=== PATIENT | female | born 1965 | race Asian ===

== ENCOUNTER 2020-01-23 07:44 | Outpatient (CLI) | payer OTHER, SELFPAY ==
--- NOTE | ~2020-01-23 | DEXA_ITS ---
Bone Density Report Name: Duarte Gutierrez Age: 54 Sex: Female Ethnicity: White Date of : 1965 Indication: postmenopausal; hysterectomy; Referring Provider: Shavon Chaidez Study: Bone densitometry was performed. Exam Date: January 23, 2020 Accession number: [id number] Bone Density: Region BMD T-score Z-score Classification AP Spine (L1-L4) 1.191 1.3 2.2 Normal Femoral Neck (Left) 0.809 -0.4 0.5 Normal Total Hip (Left) 0.968 0.2 0.8 Normal Total Hip Bilateral Avg 0.979 0.3 0.8 Normal Femoral Neck (Right) 0.835 -0.1 0.8 Normal Total Hip (Right) 0.989 0.4 0.9 Normal World Health Organization criteria for BMD impression classify patients as: Normal (T-score at or above -1.0), Osteopenia (T-score between -1.0 and -2.5), or Osteoporosis (T-score at or below -2.5). 10-year Fracture Risk: FRAX not reported because: All T-scores for Spine Total, Hip Total, Femoral Neck at or above -1.0 Clinical Information Provided by Patient: Has the following medical conditions: Hysterectomy Patient maximum height was 66 Menopause Age: 50 Drinks caffeinated beverages Onset of menses at age 14 Number of children 0 Impression: The patient has normal bone mass. Discussion: BONE DENSITY IS ABOVE THE MINIMUM DESIRABLE LEVEL AT ALL SKELETAL SITES TESTED. This patient?s bone mineral density is above the minimum desirable level (T-score -1.0 or better) at all sites measured. The patient should follow a healthful lifestyle (good nutrition with adequate calcium and vitamin D, and appropriate weight-bearing exercise). Follow-Up: Consider repeating this study in 5 years or sooner if there is some new clinical indication. Reported by: SAMAN on 01/23/2020 8:23:00 AM. Reviewed, dictated and finalized at location ACatracho [facility]
--- NOTE | ~2020-01-23 | MM_ITS ---
EXAMINATION: MM screening french BI w kamla HISTORY: Screening mammogram TECHNIQUE: Craniocaudal and mediolateral oblique 3-D tomosynthesis images were obtained and synthetic 2-D images were generated. CAD analysis was submitted and interpreted. COMPARISON: 01/20/2019, 01/18/2018, 01/16/2017 bilateral digital screening mammogram examinations BREAST PARENCHYMAL COMPOSITION: There are scattered areas of fibroglandular density. FINDINGS: There is no evidence of suspicious mass, calcification, or architectural distortion to sugg est malignancy in either breast. There has been no suspicious interval change. IMPRESSION: 1. No mammographic evidence of malignancy. 2. Recommend routine screening mammography in one year. BI-RADS Category 1: Negative Reviewed, dictated and finalized at location A.
== END 2020-01-23 07:45 | disposition home or self-care (01) ==
PROVIDERS: PCP Family Medicine; Visit Provider Student in an Organized Health Care Education/Training Program
DX: Z12.31 Encounter for screening mammogram for malignant neoplasm of breast (principal); Z78.0 Asymptomatic menopausal state
CPT/HCPCS: 77063; 77067; 77080

== ENCOUNTER 2020-01-23 09:00 | Outpatient (CLI) | payer OTHER, SELFPAY ==
--- NOTE | ~2020-01-23 | XR_ITS ---
EXAMINATION: XR abdomen/kub 1V EXAM DATE: 01/23/2020 09:19 INDICATION: Kidney stone. TECHNIQUE: Frontal projection of the upper abdomen, frontal projection lower abdomen/pelvis for inter pretation. Comparison is made to prior examination from 06/03/2018. FINDINGS: There is moderate amount of colonic stool and gas. No small bowel dilation, nonobstructiv e bowel gas pattern. There are no suspicious calcifications identified. There is no organomegaly suspected. The bones are unremarkable. There is no free intraperitoneal air. The lung bases are clear. IMPRESSION: Unremarkable abdomen x-ray exam. Reviewed, dictated and finalized at location B.
== END 2020-01-23 09:01 | disposition home or self-care (01) ==
PROVIDERS: PCP Family Medicine; Visit Provider Urology
DX: N20.0 Calculus of kidney (principal)
CPT/HCPCS: 74018

== ENCOUNTER 2020-10-24 12:34 | Outpatient (CLI) | payer OTHER, SELFPAY ==
--- NOTE | ~2020-10-24 | US_ITS ---
EXAMINATION: US soft tissue chest DATE: 10/24/2020 13:21 INDICATION: Congenital malformation of respiratory tract. Palpable lump at the distal sternum. TECHNIQUE: Multiple grayscale and Doppler ultrasound images of the anterior chest wall region of conc lacy along the inferior sternum were obtained. COMPARISON: None FINDINGS: At the region of concern is a 9 x 6 x 5 mm nearly anechoic lesion with lobular margins and posterior acoustic enhancement. The lesion is situated at the junction of the dermal and subdermal fat. No inte rnal flow on color Doppler. On one of the cine images there appears to be a subtle hypoechoic tract e xtending to the skin surface. IMPRESSION: 1. 9 x 6 x 5 mm cystic subcutaneous lesion with suggestion of subtle sinus tract extending to the ski n surface which would be most consistent with an epidermoid sebaceous cyst. Reviewed, dictated and finalized at location A. IMPRESSION: 1. 9 x 6 x 5 mm cystic subcutaneous lesion with suggestion of subtle sinus trac t extending to the skin surface which would be most consistent with an epidermo id sebaceous cyst.
== END 2020-10-24 12:35 | disposition home or self-care (01) ==
PROVIDERS: PCP Physician Assistant; Visit Provider Student in an Organized Health Care Education/Training Program
DX: Q34.9 Congenital malformation of respiratory system, unspecified (principal); M79.89 Other specified soft tissue disorders
CPT/HCPCS: 76604

== ENCOUNTER 2021-01-24 14:01 | Outpatient (CLI) | payer OTHER, SELFPAY ==
--- NOTE | ~2021-01-24 | MM_ITS ---
EXAMINATION: MM screening french BI w kamla HISTORY: Screening mammogram TECHNIQUE: Craniocaudal and mediolateral oblique 3-D tomosynthesis images were obtained and synthetic 2-D images were generated. CAD analysis was submitted and interpreted. COMPARISON: 01/23/2020, 01/20/2019, 01/18/2018, 01/16/2017, 01/16/2016 bilateral digital screening mammogr am examinations BREAST PARENCHYMAL COMPOSITION: There are scattered areas of fibroglandular density. FINDINGS: There is no evidence of suspicious mass, calcification, or architectural distortion to sugg est malignancy in either breast. There has been no suspicious interval change. IMPRESSION: 1. No mammographic evidence of malignancy. 2. Recommend routine screening mammography in one year. BI-RADS Category 1: Negative Reviewed, dictated and finalized at location A.
== END 2021-01-24 14:02 | disposition home or self-care (01) ==
LOC: ANHIMG 14:04
PROVIDERS: PCP Family Medicine; Visit Provider Student in an Organized Health Care Education/Training Program
DX: Z12.31 Encounter for screening mammogram for malignant neoplasm of breast (principal)
CPT/HCPCS: 77063; 77067

== ENCOUNTER → 2021-03-21 16:26 | Outpatient (CLI) | payer OTHER, SELFPAY ==
--- NOTE | ~2021-03-21 | XR_ITS ---
XR pelvis 1-2V DATE: 03/21/2021 16:46 INDICATION: Sacroiliac joint pain TECHNIQUE: AP pelvis COMPARISON: None FINDINGS: No pelvic fracture or bone destruction. The pubic symphysis and sacroiliac joints are intac t. No erosive change or ankylosis at the sacroiliac joints. There is multilevel degenerative disc disease of the lumbar spine. Bilateral moderate hip osteoarthritis. IMPRESSION: Multilevel degenerative disc disease of the lumbar spine Moderate bilateral hip osteoarthritis Unremarkable sacroiliac joints Reviewed, dictated and finalized at location A.
--- NOTE | ~2021-03-21 | XR_ITS ---
XR lumbar spine 2-3V DATE: 03/21/2021 16:46 INDICATION: Low back pain TECHNIQUE: AP, lateral, coned lateral lumbosacral views COMPARISON: 01/04/2015 lumbar spine FINDINGS: There is minimal levoscoliosis of the thoracolumbar spine. There is mild grade 1 anterolist hesis at L4-5 due to degenerative change at the apophyseal joints. There is moderate multilevel degenerative disc disease of the lumbar spine. No fracture or bone destruction is evident. The included lower thoracic and lumbar pedicles are intac t. The sacroiliac joints are normal. IMPRESSION: Minimal levoscoliosis of the thoracic and lumbar spine Moderate degenerative disc disease Grade 1 anterolisthesis at L4-5 due to degenerative change at the apophyseal joints Reviewed, dictated and finalized at location A. IMPRESSION: Minimal levoscoliosis of the thoracic and lumbar spine Moderate degenerative disc disease Grade 1 anterolisthesis at L4-5 due to degenerative change at the apophyseal basil ints
== END ==
PROVIDERS: PCP Internal Medicine; Visit Provider Internal Medicine
DX: M53.3 Sacrococcygeal disorders, not elsewhere classified (principal); M54.5 Low back pain; M51.36 Other intervertebral disc degeneration, lumbar region; M16.0 Bilateral primary osteoarthritis of hip; M41.84 Other forms of scoliosis, thoracic region; M41.86 Other forms of scoliosis, lumbar region; M43.16 Spondylolisthesis, lumbar region
CPT/HCPCS: 72100; 72170

== ENCOUNTER → 2021-04-01 16:02 | Outpatient (CLI) | payer OTHER, SELFPAY ==
--- NOTE | ~2021-04-01 | MR_ITS ---
EXAMINATION: MR lumbar spine wo con DATE: 04/01/2021 16:54 INDICATION: Low back pain. TECHNIQUE: Magnetic resonance imaging (MRI) of the lumbar spine was performed without intravenous con trast. Sequences included sagittal T2-weighted FSE, sagittal T2-weighted FS FSE, sagittal T1-weighted FSE, and axial T2-weighted FSE. COMPARISON: Lumbar spine radiographs 03/21/2021 FINDINGS: There is 6 degrees levocurvature of thoracolumbar spine. There is 4 mm anterolisthesis of L 4 on L5. Vertebral body heights are normal. There is mildly decreased disc height at L4-L5 and L5-S1. The distal spinal cord signal intensity is normal. The conus medullaris is at L1. The following disc levels are specifically discussed: L1-L2: The disc does not extend beyond the endplate margin. There is mild bilateral facet joint osteo arthritis. There is no neural foraminal stenosis. There is no central canal stenosis. L2-L3: The disc does not extend beyond the endplate margin. There is mild bilateral facet joint osteo arthritis. There is no neural foraminal stenosis. There is no central canal stenosis. L3-L4: The disc is bulging and has an annular fissure. There is severe bilateral facet joint osteoart hritis. There is mild bilateral neural foraminal stenosis. There is mild central canal stenosis. L4-L5: The disc does not extend beyond the endplate margin. There is severe bilateral facet joint ost eoarthritis. There is mild bilateral neural foraminal stenosis. There is mild central canal stenosis. L5-S1: There is a central extrusion. There is moderate bilateral facet joint osteoarthritis. There is mild left neural foraminal stenosis. There is mild central canal stenosis. IMPRESSION: 1. Mild lumbar spondylosis. Reviewed, dictated and finalized at location A. IMPRESSION: 1. Mild lumbar spondylosis.
== END ==
PROVIDERS: PCP Internal Medicine; Visit Provider Internal Medicine
DX: M54.5 Low back pain (principal); M47.816 Spondylosis without myelopathy or radiculopathy, lumbar region
CPT/HCPCS: 72148

== ENCOUNTER 2022-01-19 11:18 | Outpatient (CLI) | payer OTHER, SELFPAY ==
--- NOTE | ~2022-01-19 | XR_ITS ---
EXAM: XR abdomen/kub 1V DATE: 01/19/2022 11:34 HISTORY: CALCIUM KIDNEY STONE. LEFT SIDE . COMPARISON: CT abdomen and pelvis 09/30/2018. FINDINGS: Clear lung bases. Normal bowel gas pattern. No organomegaly. Punctate left mid and inferio r pole calcifications. Degenerative changes in the lumbar spine and bilateral hips. IMPRESSION: Left nephrolithiasis. Reviewed, dictated and finalized at location K. IMPRESSION: Left nephrolithiasis.
== END 2022-01-19 11:19 | disposition home or self-care (01) ==
PROVIDERS: PCP Internal Medicine; Visit Provider Urology
DX: N20.0 Calculus of kidney (principal)
CPT/HCPCS: 74018

== ENCOUNTER 2022-02-04 08:03 | Outpatient (CLI) | payer OTHER, SELFPAY ==
--- NOTE | ~2022-02-04 | DEXA_ITS ---
Bone Density Report Name: BREANA LEE Age: 56 Sex: Female Ethnicity: Date of : 1965 Indication: postmenopausal; screening for osteoporosis; hysterectomy; Referring Provider: DIMITRY BAZZI Study: Bone densitometry was performed. Exam Date: February 04, 2022 Accession number: [id number] Bone Density: Region BMD T-score Z-score Classification AP Spine(L1, L2, L3) 1.205 1.7 2.7 Normal Femoral Neck (Left) 0.818 -0.3 0.7 Normal Total Hip (Left) 0.989 0.4 1.0 Normal Femoral Neck (Right) 0.886 0.3 1.3 Normal Total Hip (Right) 1.018 0.6 1.3 Normal Total Hip Mean 1.003 0.5 1.2 Normal World Health Organization criteria for BMD impression classify patients as: Normal (T-score at or above -1.0), Osteopenia (T-score between -1.0 and -2.5), or Osteoporosis (T-score at or below -2.5). 10-year Fracture Risk: FRAX not reported because: All T-scores for Spine Total, Hip Total, Femoral Neck at or above -1.0 Previous Exams: Region Exam Age BMD T-score BMD Change BMD Change Date g/cm2 vs Baseline vs Previous AP Spine (L1-L3) 02/04/2022 56 1.205 1.7 0.060 (5.3%)* 0.060 (5.3%)* 01/23/2020 54 1.145 1.2 Total Hip(Left) 02/04/2022 56 0.989 0.4 0.021 (2.2%) 0.021 (2.2%) 01/23/2020 54 0.968 0.2 Total Hip(Right) 02/04/2022 56 1.018 0.6 0.029 (2.9%)* 0.029 (2.9%)* 01/23/2020 54 0.989 0.4 *Denotes significance at 95% confidence level, LSC for AP Spine = 0.022 g/cm2, LSC for Total Hip = 0.027 g/cm2 Clinical Information Provided by Patient: Has used the following medications: Vitamin D Has the following medical conditions: Hysterectomy Patient maximum height was 66.5 Menopause Age: 50 Does not regularly consume dairy products Drinks caffeinated beverages Onset of menses at age 14 Number of children 0 Impression: The patient has normal bone mass. No significant bone loss was observed. Discussion: BONE DENSITY IS ABOVE THE MINIMUM DESIRABLE LEVEL AT ALL SKELETAL SITES TESTED. This patient?s bone mineral density is above the minimum desirable level (T-score -1.0 or better) at all sites measured. The patient should follow a healthful lifestyle (good nutrition with adequate calcium and vitamin D, and appropriate weight-bearing exercise). Follow-Up: Consider repeating this study in 5 years or sooner if there is some new clinical indication. Reported by: YINKA on 02/04/2022 8:38:00 AM.
--- NOTE | ~2022-02-04 | MM_ITS ---
EXAMINATION: MM screening french BI w kamla HISTORY: Screening TECHNIQUE: Craniocaudal and mediolateral oblique 3-D tomosynthesis images were obtained and synthetic 2-D images were generated. CAD analysis was submitted and interpreted. COMPARISON: Comparison to multiple prior studies sequentially, with oldest reviewed study dated 01/15. BREAST PARENCHYMAL COMPOSITION: There are scattered areas of fibroglandular density. FINDINGS: There is no evidence of suspicious mass, calcification, or architectural distortion to sugg est malignancy in either breast. There has been no suspicious interval change. IMPRESSION: 1. No mammographic evidence of malignancy. 2. Recommend routine screening mammography in one year. BI-RADS Category 1: Negative Reviewed, dictated and finalized at location A.
== END 2022-02-04 08:04 | disposition home or self-care (01) ==
LOC: ANHIMG 08:04
PROVIDERS: PCP Internal Medicine; Visit Provider Student in an Organized Health Care Education/Training Program
DX: Z12.31 Encounter for screening mammogram for malignant neoplasm of breast (principal); Z78.0 Asymptomatic menopausal state
CPT/HCPCS: 77063; 77067; 77080

== ENCOUNTER 2023-03-12 14:33 | Outpatient (CLI) | payer OTHER, SELFPAY ==
--- NOTE | ~2023-03-12 | MM_ITS ---
EXAMINATION: MM screening french BI w kamla HISTORY: Screening TECHNIQUE: Craniocaudal and mediolateral oblique 3-D tomosynthesis images were obtained and synthetic 2-D images were generated. CAD analysis was submitted and interpreted. COMPARISON: Comparison to multiple prior studies sequentially, with oldest reviewed study dated 01/16. BREAST PARENCHYMAL COMPOSITION: Breast composed of scattered areas of fibroglandular density FINDINGS: There are developing asymmetries scattered throughout the left breast some of which have a nodular appearance. The right breast is stable without evidence for malignancy. IMPRESSION: 1. Developing nodular asymmetries of the left breast. 2. Additional mammographic views and possible breast ultrasound are recommended. BI-RADS Category 0: Incomplete: Needs additional imaging evaluation. Reviewed, dictated and finalized at location A. IMPRESSION: 1. Developing nodular asymmetries of the left breast. 2. Additional mammographic views and possible breast ultrasound are recommended . BI-RADS Category 0: Incomplete: Needs additional imaging evaluation.
== END 2023-03-12 14:34 | disposition home or self-care (01) ==
LOC: ANHIMG 14:36
PROVIDERS: PCP Internal Medicine; Visit Provider Registered Nurse
DX: Z12.31 Encounter for screening mammogram for malignant neoplasm of breast (principal); N64.89 Other specified disorders of breast; R92.8 Other abnormal and inconclusive findings on diagnostic imaging of breast
CPT/HCPCS: 77063; 77067

== ENCOUNTER 2023-04-08 12:39 | Outpatient (CLI) | payer OTHER, SELFPAY ==
--- NOTE | ~2023-04-08 | MMUS_ITS ---
EXAMINATION: MM diagnostic french LT w kamla, US breast LT limited HISTORY: Developing nodular asymmetries of left breast reported on 03/12/2023 screening mammogram TECHNIQUE: Additional 3-D tomosynthesis images of the left breast were performed and synthetic 2-D im ages were generated. CAD analysis was submitted and interpreted. High resolution upper outer and lowe r-outer quadrants and subareolar left breast ultrasound was performed. COMPARISON: 03/12/2023, 02/04/2022, 01/24/2021 bilateral screening mammogram examinations FINDINGS: MAMMOGRAPHIC FINDINGS: No suspicious mass or architectural distortion, malignant calcification, skin thickening or retractio n or significant new or developing density is detected. ULTRASOUND: No suspicious mass or shadowing, cyst or other significant sonographic abnormality is detected in the subareolar area where the upper outer or lower outer quadrants. IMPRESSION: 1. No mammographic or sonographic evidence of malignancy 2. Routine annual mammographic screening is recommended BI-RADS Category 1: Negative Reviewed, dictated and finalized at location A. IMPRESSION: 1. No mammographic or sonographic evidence of malignancy 2. Routine annual mammographic screening is recommended BI-RADS Category 1: Negative
== END 2023-04-08 12:40 | disposition home or self-care (01) ==
PROVIDERS: PCP Internal Medicine; Visit Provider Registered Nurse
DX: R92.8 Other abnormal and inconclusive findings on diagnostic imaging of breast (principal)
CPT/HCPCS: 76642; 77061; 77065; G0279

== ENCOUNTER 2023-05-03 09:06 | Day surgery (SDC) | payer OTHER, SELFPAY ==
[2023-05-03 10:01] VITALS: BP 119/93; PULSE 73; RESP 16; TEMP 37.1; O2SAT 97
[2023-05-03] MEDS: LACTATED RINGERS 1,000 ML 150 ML IV CONT (10:08)
--- NOTE | 2023-05-03 10:13 | WPDANESEPPF ---
Anes - Initial Pre Proc Eval Procedure: Operation Date: 05/03/23 11:00 Proposed Procedures p Colonoscopy - Aden Haas MD Date/Time: 05/03/23 10:13 Surgeon: Aden Haas MD Pre Op Diagnosis: Family History of Colon Cancer Patient Data Age: 57 Gender: F Height: 1.68 m Weight: 76.5 kg Last Vital Signs Temp 37.1 C 05/03/23 10:01 Pulse 73 05/03/23 10:01 Resp 16 05/03/23 10:01 BP 119/93 H 05/03/23 10:01 Pulse Ox 97 05/03/23 10:01 O2 Del Method Room Air 05/03/23 10:01 Allergies Allergy/AdvReac Type Severity Reaction Status Date / Time neomycin Allergy Intermediate REDNESS,BLI Verified 05/03/23 09:59 STERS adhesive Allergy Mild Rash Verified 05/03/23 09:59 bacitracin Allergy Unknown Unknown Verified 05/03/23 09:59 polymyxin B Allergy Unknown Unknown Verified 05/03/23 09:59 Home Medications Medication Instructions Recorded Confirmed Type cholecalciferol (vitamin D3) 125 5,000 unit PO .3XWK 10/03/20 05/03/23 History mcg (5,000 unit) tablet lactobacillus combination no.8 3 3,000 mmu cells PO DAILY 10/03/20 05/03/23 History billion cell capsule (Adult Probiotic) levothyroxine 75 mcg tablet 75 mcg PO DAILY #90 tabs 03/24/21 05/03/23 Rx (Levo-T) hydrochlorothiazide 25 mg tablet 25 mg PO DAILY 04/16/21 05/03/23 History estradiol 2 mg tablet 2 mg PO DAILY #90 tabs 01/01/23 05/03/23 Rx amlodipine 10 mg tablet 10 mg PO DAILY 04/13/23 05/03/23 History Patient hx anesthesia problems: none Family hx anesthesia problems: none Results Review: All pre-operative results and documents have been reviewed as part of the pre-operative evaluation. [facility] Past Medical History Medical History Elevated liver function tests Family history of colon cancer in father History of nephrolithotomy with removal of calculi Hypertension Hypothyroidism Menopausal syndrome Normal colonoscopy Prediabetes Surgical History Surgical History H/O LEEP History of appendectomy History of hysterectomy [place] teeth removed Family History Family History Mother Diabetes mellitus Hypertension Patient's mother is , Onset Age: 64 Father Patient's father is , Onset Age: 68 Carcinoma of colon Family history of primary malignant neoplasm of liver Sibling Family history of malignant neoplasm of thyroid Social History Social History (Updated 01/01/23 @ 07:45 by Verena Burgos MA) Smoking status: Never smoker Second hand tobacco smoke exposure: No Alcohol intake: never Substance use: never Substance use type: does not use Lack of Transportation: No Lack of Food: Never True Current Housing: I Have Housing Concerned About Future Housing: No Difficulty Paying Gas/Electric Bills: No Difficulty Paying for Meds: No Currently Unemployed: No Education: Master's Degree or Higher Living arrangements: with family Occupation/Education: occupation Gender identity (if verbalized by the patient): Female Sexual Orientation (if Verbalized by the Patient): Straight or Heterosexual Spiritual care concerns: No Anes - Eval Final PreProcedure Day of Procedure 05/03/23 10:13 Patient weight: overweight Heart: regular rate and rhythm Lungs: clear to auscultation Airway: Mallampati scale class II Neurological: alert and oriented Last oral intake: >/= 8 hours ASA classification: II Emergent: no Anesthetic plan: proceed Anesthesia type and monitoring: general GIVS and standard monitoring Results Review: All pre-operative results and documents have been reviewed as part of the pre-operative evaluation. Informed Consent: The patient's anesthetic plan and its attendant risks and benefits were discussed with the patient/family/POA. Questions were
--- NOTE | 2023-05-03 10:58 | PM.HPGS ---
History of Present Illness History of Present Illness Consent: Risks, benefits, and alternatives have been discussed and questions answered. Patient agrees to proceed with procedure. Chief complaint: Family History of Colon Cancer Narrative: Duarte Gutierrez is a 57 year old female here for colonoscopy, ?her father had colon cancer and she has been getting her colonoscopies every 5 years (already had 3 and last one 2018) Review of Systems Constitutional: Constitutional: Denies headache(s) and Denies weakness Eyes: Eyes: Denies blurry vision ENT: Reports Normal hearing present, Denies headache(s) and Denies neck pain Cardiovascular: Cardiovascular: Denies chest pain and Denies dyspnea Respiratory: Respiratory: Denies dyspnea Gastrointestinal: Gastrointestinal: Reports no additional gastrointestinal complaints Genitourinary: Genitourinary: Denies dysuria Musculoskeletal: Musculoskeletal: Denies neck pain Integumentary/Breasts: Skin/Breast: Denies dry skin Neurologic: Reports Normal hearing present, Denies headache(s) and Denies weakness Psychiatric: Psychiatric: Denies anxiety Endocrine: Endocrine: Denies change in body appearance Hematologic/Lymphatic: Hematologic/Lymphatic: Denies easy bleeding Allergic/Immunologic: Allergic/Immunologic: Denies urticaria PMFSH Past Medical History Medical History Elevated liver function tests Family history of colon cancer in father History of nephrolithotomy with removal of calculi Hypertension Hypothyroidism Menopausal syndrome Normal colonoscopy Prediabetes Surgical History Surgical History H/O LEEP History of appendectomy History of hysterectomy [place] teeth removed Family History Family History Mother Diabetes mellitus Hypertension Patient's mother is , Onset Age: 64 Father Patient's father is , Onset Age: 68 Carcinoma of colon Family history of primary malignant neoplasm of liver Sibling Family history of malignant neoplasm of thyroid Social History Social History (Updated 01/01/23 @ 07:45 by Verena Burgos MA) Smoking status: Never smoker Second hand tobacco smoke exposure: No Alcohol intake: never Substance use: never Substance use type: does not use Lack of Transportation: No Lack of Food: Never True Current Housing: I Have Housing Concerned About Future Housing: No Difficulty Paying Gas/Electric Bills: No Difficulty Paying for Meds: No Currently Unemployed: No Education: Master's Degree or Higher Living arrangements: with family Occupation/Education: occupation Gender identity (if verbalized by the patient): Female Sexual Orientation (if Verbalized by the Patient): Straight or Heterosexual Spiritual care concerns: No Meds Home Medications and Allergies Home Medications Medication Instructions Recorded Confirmed Type cholecalciferol (vitamin D3) 125 5,000 unit PO .3XWK 10/03/20 05/03/23 History mcg (5,000 unit) tablet lactobacillus combination no.8 3 3,000 mmu cells PO DAILY 10/03/20 05/03/23 History billion cell capsule (Adult Probiotic) levothyroxine 75 mcg tablet 75 mcg PO DAILY #90 tabs 03/24/21 05/03/23 Rx (Levo-T) hydrochlorothiazide 25 mg tablet 25 mg PO DAILY 04/16/21 05/03/23 History estradiol 2 mg tablet 2 mg PO DAILY #90 tabs 01/01/23 05/03/23 Rx amlodipine 10 mg tablet 10 mg PO DAILY 04/13/23 05/03/23 History Allergies Allergy/AdvReac Type Severity Reaction Status Date / Time neomycin Allergy Intermediate REDNESS,BLI Verified 05/03/23 09:59 STERS adhesive Allergy Mild Rash Verified 05/03/23 09:59 bacitracin Allergy Unknown Unknown Verified 05/03/23 09:59 polymyxin B Allergy Unknown Unknown Verified 05/03/23 09:59 Vital Signs Vital Signs - 24 hr 05/03/23 1
[2023-05-03 11:21] VITALS: BP 94/69; PULSE 66; RESP 18; O2SAT 99
[2023-05-03 11:31] VITALS: BP 107/78; PULSE 63; RESP 14; O2SAT 100
[2023-05-03 11:41] VITALS: BP 118/74; PULSE 65; RESP 15; O2SAT 100
--- NOTE | 2023-05-03 11:58 | WPDANESPN ---
Anes - Prog Note Post-Op Date/Time: 05/03/23 11:58 Cardiovascular status: normal Respiratory status: normal Airway patency: baseline Mental status: baseline Post-Op hydration status: normal Vital Signs: Last Vital Signs Temp 37.1 C 05/03/23 10:01 Pulse 65 05/03/23 11:41 Resp 15 05/03/23 11:41 BP 118/74 05/03/23 11:41 Pulse Ox 100 05/03/23 11:41 O2 Del Method Room Air 05/03/23 11:41 Pain Score (VAS): 0 I/O: Intake & Output 05/02/23 05/03/23 05/03/23 23:59 07:59 15:59 Intake Total 850 Balance 850 Patient Feedback: Patient satisfied with anesthetic care.
== END 2023-05-03 11:54 | disposition home or self-care (01) ==
PROVIDERS: PCP Internal Medicine; Visit Provider Internal Medicine Gastroenterology
PROC: 0DJD8ZZ Inspection of Lower Intestinal Tract, Via Natural or Artificial Opening Endoscopic (ICD-10-PCS; CPT 45378; principal; 2023-05-03 11:00)
DX: Z80.0 Family history of malignant neoplasm of digestive organs (principal); K57.30 Diverticulosis of large intestine without perforation or abscess without bleeding
CPT/HCPCS: 45378

== ENCOUNTER 2024-03-25 08:13 | Outpatient (CLI) | payer OTHER, SELFPAY ==
--- NOTE | ~2024-03-25 | MM_ITS ---
EXAMINATION: MM screening [facility] BI w kamla HISTORY: Screening TECHNIQUE: Craniocaudal and mediolateral oblique 3-D tomosynthesis images were obtained and synthetic 2-D images were generated. CAD analysis was submitted and interpreted. COMPARISON: Comparison to multiple prior studies sequentially, with oldest reviewed study dated 01/20. BREAST PARENCHYMAL COMPOSITION: Not dense: There are scattered areas of fibroglandular density. FINDINGS: There is no evidence of suspicious mass, calcification, or architectural distortion to sugg est malignancy in either breast. There has been no suspicious interval change. IMPRESSION: 1. No mammographic evidence of malignancy. 2. Recommend routine screening mammography in one year. BI-RADS Category 1: Negative Reviewed, dictated and finalized at location B.
== END 2024-03-25 08:14 | disposition home or self-care (01) ==
PROVIDERS: PCP Internal Medicine; Visit Provider Nurse Practitioner Family
DX: Z12.31 Encounter for screening mammogram for malignant neoplasm of breast (principal)
CPT/HCPCS: 77063; 77067

== ENCOUNTER 2024-06-07 14:08 | Outpatient (CLI) | payer OTHER, SELFPAY ==
--- NOTE | ~2024-06-07 | DEXA_ITS ---
Bone Density Report Name: BREANA LEE Age: 58 Sex: Female Ethnicity: Date of : 1965 Indication: postmenopausal; screening for osteoporosis; hysterectomy; Referring Provider: AMBER JONES Study: Bone densitometry was performed. Exam Date: June 07, 2024 Accession number: [id number] Bone Density: Region BMD T-score Z-score Classification AP Spine(L1-L4) 1.286 2.2 3.4 Normal Femoral Neck (Left) 0.837 -0.1 1.0 Normal Total Hip (Left) 1.012 0.6 1.3 Normal Femoral Neck (Right) 0.872 0.2 1.3 Normal Total Hip (Right) 1.013 0.6 1.3 Normal Total Hip Mean 1.012 0.6 1.3 Normal World Health Organization criteria for BMD impression classify patients as: Normal (T-score at or above -1.0), Osteopenia (T-score between -1.0 and -2.5), or Osteoporosis (T-score at or below -2.5). 10-year Fracture Risk: FRAX not reported because: All T-scores for Spine Total, Hip Total, Femoral Neck at or above -1.0 Previous Exams: Region Exam Age BMD T-score BMD Change BMD Change Date g/cm2 vs Baseline vs Previous AP Spine (L1-L4) 06/07/2024 58 1.286 2.2 0.095 (8.0%)* 0.095 (8.0%)* 01/23/2020 54 1.191 1.3 Total Hip(Left) 06/07/2024 58 1.012 0.6 0.044 (4.5%)* 0.023 (2.3%) 02/04/2022 56 0.989 0.4 0.021 (2.2%) 0.021 (2.2%) 01/23/2020 54 0.968 0.2 Total Hip(Right) 06/07/2024 58 1.013 0.6 0.024 (2.4%) -0.005 (-0.4%) 02/04/2022 56 1.018 0.6 0.029 (2.9%)* 0.029 (2.9%)* 01/23/2020 54 0.989 0.4 *Denotes significance at 95% confidence level, LSC for AP Spine = 0.022 g/cm2, LSC for Total Hip = 0.027 g/cm2 Clinical Information Provided by Patient: Has used the following medications: Vitamin D Has the following medical conditions: Hysterectomy Patient maximum height was 66 Menopause Age: 50 Does not regularly consume dairy products Drinks caffeinated beverages Onset of menses at age 14 Number of children 0 Impression: The patient has normal bone mass. No significant bone loss was observed. Discussion: BONE DENSITY IS ABOVE THE MINIMUM DESIRABLE LEVEL AT ALL SKELETAL SITES TESTED. This patient?s bone mineral density is above the minimum desirable level (T-score -1.0 or better) at all sites measured. The patient should follow a healthful lifestyle (good nutrition with adequate calcium and vitamin D, and appropriate weight-bearing exercise). Follow-Up: Consider repeating this study in 5 years or sooner if there is some new clinical indication. Reported by: YINKA on 06/07/2024 2:33:00 PM. Reviewed, dictated and finalized at location [facility]
== END 2024-06-07 14:09 | disposition home or self-care (01) ==
LOC: ANHIMG 14:09
PROVIDERS: PCP Internal Medicine; Visit Provider Nurse Practitioner Family
DX: N95.1 Menopausal and female climacteric states (principal); Z13.820 Encounter for screening for osteoporosis
CPT/HCPCS: 77080

== ENCOUNTER 2024-06-18 07:30 | Outpatient (CLI) | payer OTHER, SELFPAY ==
--- NOTE | ~2024-06-18 | MR_ITS ---
MRI of the left shoulder Technique: Axial proton-density fat-sat images, coronal proton density fat-sat and T2 fat-sat images, and sagittal T1-weighted and T2 fat-sat images were acquired. Clinical History: Pain Findings: There is minimal degenerative change at the AC joint. Coracoclavicular, coracoacromial, and coracohumeral ligaments are intact. Supraspinatus and infraspinatus tendons are intact, without partial or full-thickness tear. Subscapul florian tendon intact. Tendon of the long head of the biceps is intact. No labral tear seen. Inferior glenohumeral ligament is probably mildly thickened with increased signal. No degenerative ch deion or effusion of the glenohumeral joint. No fluid distention of the subacromial/subdeltoid bursa. No muscle atrophy or edema. Impression: Possible adhesive capsulitis. No rotator cuff or labral tear seen. Reviewed, dictated and finalized at [facility]. HOLOGICAL STRESS EVALUATOR Impression: Possible adhesive capsulitis. No rotator cuff or labral tear seen.
== END 2024-06-18 07:31 | disposition home or self-care (01) ==
LOC: ANHIMG 07:31
PROVIDERS: PCP Internal Medicine
DX: M25.512 Pain in left shoulder (principal); M75.42 Impingement syndrome of left shoulder
CPT/HCPCS: 73221

== ENCOUNTER 2025-02-22 07:36 | Emergency (ER) | payer OTHER, SELFPAY ==
--- NOTE | ~2025-02-22 | CT_ITS ---
EXAMINATION: CT abdomen pelvis wo con DATE: 02/22/2025 09:56 INDICATION: Left flank pain. History of kidney stones. TECHNIQUE: Computed tomography (CT) of the abdomen and pelvis was performed without intravenous contr ast. The dose-length product was 437.54 mGy-cm. Automated exposure control and iterative reconstruction technique were employed. COMPARISON: CT dated 10/01/2019 FINDINGS: There is a 4 mm left UVJ stone with mild-moderate left hydronephrosis. There are nonobstruc ting bilateral renal stones. Dependent atelectasis of the lung bases. Heart size normal. The liver, spleen, pancreas, adrenal glan ds are unremarkable. No free air or free fluid. No significant vascular abnormality. No lymphadenopat hy. No abnormal pelvic masses or fluid collections. Mild lumbar spondylosis. There is degenerative gr marycruz 1 spondylolisthesis at L4-5. IMPRESSION: 1. Left UVJ stone measuring 4 mm with mild-moderate hydronephrosis. 2: Nonobstructing bilateral nephrolithiasis. Reviewed, dictated and finalized at location A.
--- OUTSIDE RECORDS SUMMARY | 2025-02-22 07:38 | XMS_ITS | Referral Summary ---
Author Organization [facility] Physician Office Building [address] [place] [address] Care Team Providers Care [employer] Financials Consultant Name Role Phone Isabelle Rojas MD Primary Care Provider [phone] Allergies Active Allergy Reactions Criticality Noted Date Comments Latex Unknown 05/29/2024 Hlilomia-Tmqqkoguxw-Qglkgxvlq Rash,Unknown Medium 08/2018 Wasp Venom Swelling Medium 08/02/1997 Medications Synthroid 75 mcg tablet 05/22/2021 Active lisinopriL (PRINIVIL,ZESTRI L) 10 mg tablet Take 1 tablet (10 mg total) by mouth daily Active cholecalciferol (VITAMIN D-3) 5,000 unit capsule 11/11/2020 Active amLODIPine (NORVASC) 10 mg tablet Take 1 tablet (10 mg total) by mouth daily 11/11/2020 Active L. acidophilus/Bifi d. animalis 31 billion cell capsule 11/11/2020 Active hydroCHLOROthiaz yosef (HYDRODIURIL) 25 mg tablet Take 1 tablet (25 mg total) by mouth daily 10/03/2020 Active estradioL (ESTRACE) 2 mg tablet Take 1 tablet (2 mg total) by mouth daily 03/19/2020 Active Active Problems No known active problems Social History Tobacco Use Types Packs/Day Years Used Date Smoking Tobacco: Never Tobacco Cessation:Counseling Given: Not Answered Comments Unknown Sex and Gender Information Value Date Recorded Sex Assigned at Not on file Legal Sex Female 2:25 AM SONG LYRICIST Gender Identity Not on file Sexual Orientation Not on file Last Filed Vital Signs Vital Sign Reading Time Taken Comments Blood Pressure 116/84 05/29/2024 2:38 PM CDT Pulse 78 05/29/2024 2:38 PM CDT Temperature 37.1 C (98.8 F) 06/23/2021 8:08 AM SONG LYRICIST Respiratory Rate 16 06/23/2021 8:08 AM SONG LYRICIST Oxygen Saturation 99% 06/23/2021 8:08 AM SONG LYRICIST Inhaled Oxygen Concentration - - Weight 72.5 kg (159 lb 14.4 oz) 05/29/2024 2:38 PM CDT Height 167 cm (5' 5.75) 05/29/2024 2:38 PM CDT Body Mass Index 26.01 05/29/2024 2:38 PM CDT Plan of Treatment Not on file Insurance [facility] HMO/PPO Address: [address] [address] [place] [address] [facility] [id number] [facility] CHO[facility] HMO/PPO Address: [address] [address] [place] [address] [facility] [id number] Care Teams [employer] Consultant Relationship Specialty Start Date End Date Isabelle Rojas MD PCP - General Internal Medicine 04/03/21
--- OUTSIDE RECORDS SUMMARY | 2025-02-22 07:39 | XMS_ITS | Clinical Summary ---
Author Organization [facility] Address [address], [address] [address] Phone Care Team Providers Care Box Lining Machine Feeder Name Role Phone Melchor Manzanares DO Unavailable [phone] Barbi Gutierrez MD Primary Care Provi shree Allergies Active Allergy Reactions Criticality Noted Date Comments Cclcinflth-Bxzpdysg-Bvmdibpei Rash 2018 Medications levothyroxine (SYNTHROID) 75 MCG Tablet Take 75 mcg by mouth daily. Reported on 11/19/2016 Active Estrogens Conj Synthetic B (ENJUVIA) 0.625 MG Tablet Take by mouth. Reported on 11/19/2016 Active lisinopril (PRINIVIL, ZESTRIL) 10 MG Tablet Take 10 mg by mouth daily. Active estradiol (ESTRACE) 1 MG Tablet Take 1.5 mg by mouth daily. Hazardous: Medication requires special safe handling and disposal. Active Nutritional Supplements (DHEA PO) Take 5 mg by mouth. Active Progesterone Micronized 200 MG Capsule Take 200 mg by mouth daily. Hazardous: Medication requires special safe handling and disposal. Active Cholecalciferol (VITAMIN D-3 PO) Take 5,000 Units by mouth. Active polyethylene glycol (MIRALAX) Powder Use 255g with 64 oz of clear liquid as directed by office for colonoscopy prep. 255 g 7 Active Additional Information Patient not taking.Reported on 05/31/2018 hydroCHLOROthiaz yosef 25 MG Tablet Take 25 mg by mouth daily. Active amLODIPine (NORVASC) 10 MG Tablet Take 10 mg by mouth daily. Active Dietary Management Product (VSL#3) Pack Take 1 Packet by mouth daily. Active Probiotic Product (ALOE 41206 & PROBIOTICS) Capsule Take by mouth. Activ e LINZESS 290 MCG Capsule TAKE 1 CAPSULE EVERY MORNING BEFORE BREAKFAST 30 Cap 6 8 Active Additional Information Patient not taking.Reported on 11/28/2018 Active Problems Problem Noted Date Diagnosed Date Chronic idiopathic constipation 11/19/2016 Family History Medical History Relation Name Comments Colon Cancer Father Liver Cancer Father Diabetes Mother Hypertension Mother Relation Name Status Comments Father Mother Social History Tobacco Use Types Packs/Day Years Used Date Smoking Tobacco: Never Smokeless Tobacco: Never Alcohol Use Standard Drinks/Week Comments No 0 (1 standard drink = 0.6 oz pur e alcohol) Sexually Active Control Partners Comments Never None Male Comments No Sex and Gender Information Value Date Recorded Sex Assigned at Not on file Legal Sex Female 7:18 PM CDT Gender Identity Not on file Sexual Orientation Not on file 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 Not on file Not on file No t on file Last Filed Vital Signs Vital Sign Reading Time Taken Comments Blood Pressure 120/70 11/28/2018 3:12 PM CDT Pulse 66 11/28/2018 3:12 PM CDT Temperature 36.1 C (96.9 F) 05/31/2018 3:18 PM CDT Respiratory Rate 16 11/19/2016 2:51 PM CDT Oxygen Saturation 98% 11/28/2018 3:12 PM CDT Inhaled Oxygen Concentration - - Weight 71.2 kg (157 lb) 11/28/2018 3:12 PM CDT Height 167.6 cm (5' 6) 11/28/2018 3:12 PM CDT Body Mass Index 25.34 11/28/2018 3:12 PM CDT Plan of Treatment Health Maintenance Due Date Last Done Comments Hepatitis B Immunization (1 of 3 - 19+ 3-dose series) 09/30/1986 Cologuard 09/30/2012 Immunochemical Fecal Occult Blood 09/30/2012 Pneumococcal Immunization (50+ years) (1 of 1 - PCV) 09/30/2017 Zoster Immunization (1 of 2) 09/30/2017 Colonoscopy 05/05/2023 05/05/2018 Colorectal Cancer Screening 05/05/2023 SARS-COV-2 Immunization ( season) 2024 07/09/2021, 10/04/2020, 09/06/2020 Influenza Immunization (#1) 2025 0912/2016, 05/04/2016, 05/22/2015, Additional history exists Respiratory Syncytial Virus (RSV) Immunization (Adult) (1 - 1-dose 75+ series) 09/30/2042 DTaP/Tdap/Td Immunization Discontinued 01/05/2012, 08/2002 TdaP Immunization Completed 01/05/2012 Hepatitis C Virus (HCV) Screening Completed 09/11/2016 Human Papillomavirus (HPV) Immunization Aged Out No longer eligible based on patient's age to complete this topic Meningococcal Immunization (ACWY) Aged Out No longer eligible based on patient's age to complete this topic Rotavirus Immunization Aged Out No lo nger eligible based on patient's age to complete this topic Procedures Procedure Name Priority Date/Time Associated Diagnosis Comments COLONOSCOPY Routine 05/05/2018 HEPATITIS C RNA QUANT PCR RAL LOAD Routine 09/11/2016 Elevated liver enzymes from Last 3 Months or Most Recently Relevant to Health Maintenance Results * COLONOSCOPY (05/05/2018) us Melchor Manzanares DO PROCEDURE/MINOR SURGICAL ORDERA BLES Final Result * HEPATITIS C RNA QUANT PCR VIRAL LOAD (09/11/2016) Blood specimen (specimen) us Venus Willis SOFTWARE SYSTEMS ENGINEER, [facility] IMMUNOLOGY ORDERABLES Fi nal Result from Last 3 Months or Most Recently Relevant to Health Maintenance Insurance [employer] [facility] OA Care Teams Box Lining Machine Feeder Relationship Specialty Start Date End Date Barbi Gutierrez MD [address] [place] [address] PCP - General Family Medicine 05/09/18 Melchor Manzanares DO Gastroenterology 04/09/16
--- OUTSIDE RECORDS SUMMARY | 2025-02-22 07:39 | XMS_ITS | Encounter Summary ---
Author Organization [facility] Address [address] [address] Care Team Providers Care Sap Fico Architect Name Role Phone Servando Lozano MD Primary Care Provider [phone] Encounter Details Date Type Department Care Team (Late st Contact Info) Description 11/22/2020 Lab Requisition [facility] [address] [place] [id number] Deshawn Gil MD [address] [place] [address] Social History Tobacco Use Types Packs/Day Years Used Date Smoking Tobacco: Never Assessed Comments Unknown Sex and Gender Information Value Date Recorded Sex Assigned at Not on file Legal Sex Female 6:28 PM SHOP ASSISTANT Gender Identity Not on file Sexual Orientation Not on file documented as of this encounter Plan of Treatment Not on file documented as of this encounter Procedures Procedure Name Priority Date/Time Associated Diagnosis Comments DERMATOPATHOLOGY Routine 11/20/2020 3:33 AM CDT documented in this encounter Results * DERMATOPATHOLOGY (11/20/2020 3:33 AM CDT) Case Report Dermatopathology Report Case: [id number] Authorizing Provider: Deshawn Gil MD Collected: 11/20/2020 03:33 AM Ordering Location: [facility] Received: 11/22/2020 02:19 PM Pathologist: Eden Quispe MD Specimen: Skin, superior aspect breast cleavage on midline sternum 12:10 PM CDT DERMATOPATHOLOGY LABORATORY Final Diagnosis Specimen A. SKIN, superior aspect breast cleavage on midline sternum: RUPTURED EPIDERMOID CYST (L72.0) 12:10 PM CDT DERMATOPATHOLOGY LABORATORY at 1210 CDT Clinical History R/O EIC, other. 12:10 PM CDT DERMATOPATHOLOGY LABORATORY Gross Description Specimen A: Received is one formalin filled container labeled with the patient's name and designated superior aspect breast cleavage on midline sternum. The specimen consists of an excision submitted in 4 pieces measuring [id number], bisected, [id number], [id number], & 9y0i3fm. Jar 0. 12:10 PM CDT DERMATOPATHOLOGY LABORATORY Microscopic Description Specimen A. SKIN, superior aspect breast cleavage on midline sternum: Within the dermis, there is an infiltrate composed of lymphocytes and histiocytes, including multinucleated type giant cells. Some histiocytes contain flakes of material consistent with keratin. 12:10 PM CDT DERMATOPATHOLOGY LABORATORY Disclaimer An external and internal positive and negative controls are appropriate for the histochemical, immunohistochemical and immunofluorescence stain(s) in this case (if any), except where stated explicitly. The performance characteristics of the stain(s) cited in this report were developed and its performance characteristic determined by the Dermatopathology Laboratory at [facility], directed by Dr. Austin Dhillon. These tests need not be, and therefore are not, approved by the [place] Food and Drug Administration. The tests are used for clinical purposes. Billing Codes Specimen Charges Stain Charges 41592 1 12:10 PM CDT DERMATOPATHOLOGY LABORATORY Embedded Images 12:10 PM CDT DERMATOPATHOLOGY LABORATORY Pathology/Cytolo gy TISSUE SPECIMEN FROM SKIN / Unknown 11/20/2020 3:33 AM CDT 11/22/2020 2:19 PM CDT us Deshawn Gil MD LAB - PATHOLOGY/CYTOLOGY ORD ERABLES Final Result DERMATOPATHOLOGY LABORATORY [facility] - Department of Dermatology [address], [address] [phone] documented in this encounter Visit Diagnoses Not on filedocumented in this encounter Care Teams Sap Fico Architect Relationship Specialty Start Date End Date Servando Lozano MD [address] [place] [address] PCP - General 08/16/12 documented as of this encounter
--- OUTSIDE RECORDS SUMMARY | 2025-02-22 07:39 | XMS_ITS | Clinical Summary ---
Author Organization [facility] Physician Office Building [address] [place] [address] Care Team Providers Care Servicing Manager Name Role Phone Isabelle Rojas MD Primary Care Provider [phone] Allergies Active Allergy Reactions Criticality Noted Date Comments Latex Unknown 05/29/2024 Zrdamzag-Jzkwglufkf-Nvnaxhiqb Rash,Unknown Medium 08/2018 Wasp Venom Swelling Medium [...] Active Active Problems No known active problems Surgical History Surgery Date Site/Laterality Comments BUNIONECTOMY KIDNEY STONE SURGERY HYSTERECTOMY Medical History Medical History Date Comments Hypertension Tuberculosis Thyroid disease Peripheral neuropathy Kidney stone Family History Medical History Relation Name Comments Cancer Other Diabetes Other Hypertension Other Relation Name Status Comments Other Social History Tobacco Use Types Packs/Day Years Used Date Smoking Tobacco: Never Tobacco Cessation:Counseling Given: Not Answered Comments Unknown Sex and Gender Information Value Date Recorded Sex Assigned at Not on file Legal Sex Female 2:25 AM DISTRICT BRANCH MANAGER Gender Identity Not on file Sexual Orientation Not on file Obstetrics History Last Filed Vital Signs Vital Sign Reading Time Taken Comments Blood Pressure 116/84 05/29/2024 2:38 PM CDT Pulse 78 05/29/2024 2:38 PM CDT Temperature 37.1 C (98.8 F) 06/23/2021 8:08 AM DISTRICT BRANCH MANAGER Respiratory Rate 16 06/23/2021 8:08 AM DISTRICT BRANCH MANAGER Oxygen Saturation 99% 06/23/2021 8:08 AM DISTRICT BRANCH MANAGER Inhaled Oxygen Concentration - - Weight 72.5 kg (159 lb 14.4 oz) 05/29/2024 2:38 PM CDT Height 167 cm (5' 5.75) 05/29/2024 2:38 PM CDT Body Mass Index 26.01 05/29/2024 2:38 PM CDT Plan of Treatment Health Maintenance Due Date Last Done Comments Breast Cancer Screening-Mammogram 1965 Colon Cancer Screening-Colonoscopy 1965 Depression Screening 1965 Hepatitis C Screening 1965 Hepatitis B Screening 09/30/1985 Regular Well Visit/Exam 18-64 09/30/1985 DTaP/Tdap/Td Vaccine (2 - Td or Tdap) 01/04/2022 01/05/2012, 11/30/2002 Covid-19 Vaccine ( season) 2024 10/04/2020, 09/06/2020 Influenza Vaccine (#1) 2025 , 05/03/2020, 05/02/2020, Additional history exists Zoster Vaccine Completed 06/07/2020, 04/05/2020 Pneumococcal vaccine <65 Aged Out No longer eligible based on patient's age to complete this topic Insurance [facility] CHOICE PLUS [facility] H[facility]/PPO Address: [address] [address] [place] [address] [facility] CHOICE PLUS [facility] HMO/PPO Address: [place] [address] Care Teams Servicing Manager Relationship Specialty Start Date End Date Isabelle Rojas MD PCP - General Internal Medicine 04/03/21
--- OUTSIDE RECORDS SUMMARY | 2025-02-22 07:39 | XMS_ITS | Clinical Summary ---
Author Organization [facility] Address [address] [place] [address] Care Team Providers Care Certified Health Education Specialist Name Role Phone Servando Lozano MD Primary Care Provider [phone] Source Comments [facility],non-owned Affiliates and Associated Physician Practices is amultiple site organization consisting of ambulatory clinics and hospital sitesin [place], [place], [place] and [place]. This disclosure is being madepursuant to the Care Everywhere program and may not contain all information available regarding this patient. Last updated 18.[facility] Allergies No known active allergies Immunizations Immunization Administration Dates Next Due INFLUENZA VACCINE, QUADR. (F LUZONE; FLULAVAL; FLUARIX; AFLURIA QUADRIVALENT; 6MO+), 0.5 ML (IIV4) 04/11/2019 Social History Tobacco Use Types Packs/Day Years Used Date Smoking Tobacco: Never Assessed Comments Unknown Sex and Gender Information Value Date Recorded Sex Assigned at Not on file Legal Sex Female 6:28 PM HABILITATION ASSISTANT Gender Identity Not on file Sexual Orientation Not on file Plan of Treatment Health Maintenance Due Date Last Done Comments COLOGUARD (AGES 45-75) - COL ON CA SCREENING 1965 COLON MONITORING 1967 COLONOSCOPY - COLON CA SCREENING 1967 CT COLONOGRAPHY - COLON CA SCREENING 1965 Colorectal Cancer Screening 1965 FIT - COLON CA SCREENING 1967 FLEX SIG - COLON CA SCREENING 1965 LIPID TESTING 1965 MAMMOGRAM 1965 HIV SCREENING 09/30/1982 HEPATITIS C SCREENING 09/26/1985 DTAP/TDAP/TD VACCINES (1 - Tdap) 09/30/1986 HEPATITIS B VACCINE (1 of 3 - 19+ 3-dose series) 09/30/1986 PNEUMOCOCCAL VACCINE 50+ (1 of 1 - PCV) 09/30/2017 ZOSTER VACCINE (1 of 2) 09/30/2017 COVID-19 VACCINE (1 - 2023-2 5 season) 2024 DEPRESSION SCREENING 08/02/2024 INFLUENZA VACCINE (#1) 2025 04/11/2019 HIB VACCINE Aged Out No longer eligi ble based on patient's age to complete this topic HPV VACCINE Aged Out No longer eligi ble based on patient's age to complete this topic MENINGOCOCCAL (Group B) VACC INE SHARED DECISION-MAKING Aged Out No longer eligibl e based on patient's age to complete this topic MENINGOCOCCAL GROUPS A/C/Y/W VACCINE Aged Out No longer eligible b ased on patient's age to complete this topic Insurance [facility] [employer] Care Teams Certified Health Education Specialist Relationship Specialty Start Date End Date Servando Lozano MD [address] [place] [address] PCP - General 08/16/12
[2025-02-22 08:32] VITALS: BP 97/76; PULSE 70; RESP 20; TEMP 36.5; O2SAT 99
[2025-02-22 08:52] VITALS: BP 117/81; PULSE 66; RESP 19; TEMP 36.4; O2SAT 99
[2025-02-22 09:06] LABS: Hematocrit 40.7 % (37.0-47.0); Hemoglobin 14.0 g/dL (12.0-15.0); Immature Granulocyte Percent A 0.2 % (0-0.5); Lymphocytes Absolute Auto 1.08 K/mm3 (0.9-3.2); Mean Corpuscular HGB Conc 34.4 g/dl (32-36); Mean Corpuscular Hemoglobin 29.4 pg (26-34); Mean Corpuscular Volume 85.3 fl (80-100); Nucleated Red Blood Cells Absolute Auto 0.000 K/mm3 (0.0-0.012); Nucleated Red Blood Cells Perc 0.0 % (0.0-0.2); Platelet Count Result 350 k/mm3 (150-375); Red Blood Count 4.77 M/mm3 (4.2-5.4); White Blood Count 13.0 K/mm3 (4.5-10.0)
--- OUTSIDE RECORDS SUMMARY | 2025-02-22 09:21 | XMS_ITS | Clinical Summary ---
Author Organization [facility] Address [address] [place] [address] Care Team Providers Care Registered Account Administrator Name Role Phone Servando Lozano MD Primary Care Provider [phone] Source Comments [facility],non-owned Affiliates and Associated Physician Practices is amultiple site organization consisting of ambulatory clinics and hospital sitesin [place], [place], [place] and [place]. This disclosure is being madepursuant to the Care Everywhere program and may not contain all information available regarding this patient. Last updated 18.[facility] Allergies No known active allergies Immunizations Immunization Administration Dates Next Due INFLUENZA VACCINE, QUADR. (F LUZONE; FLULAVAL; FLUARIX; AFLURIA QUADRIVALENT; 6MO+), 0.5 ML (IIV4) 04/11/2019 Social History Tobacco Use Types Packs/Day Years Used Date Smoking Tobacco: Never Assessed Comments Unknown Sex and Gender Information Value Date Recorded Sex Assigned at Not on file Legal Sex Female 6:28 PM TEXTILE SCREEN MAKER Gender Identity Not on file Sexual Orientation [...] patient's age to complete this topic Insurance [facility] [employer] Care Teams Registered Account Administrator Relationship Specialty Start Date End Date Servando Lozano MD [address] [place] [address] PCP - General 08/16/12
--- OUTSIDE RECORDS SUMMARY | 2025-02-22 09:21 | XMS_ITS | Clinical Summary ---
Author Organization [facility] Physician Office Building [address] [place] [address] Care Team Providers Care Ordnance Artificer Helper Name Role Phone Isabelle Rojas MD Primary Care Provider [phone] Allergies Active Allergy Reactions Criticality Noted Date Comments Latex Unknown 05/29/2024 Yvuoyfrx-Gteutqsgqp-Scbcrzilb Rash,Unknown Medium 08/2018 Wasp Venom Swelling Medium [...] on file Legal Sex Female 2:25 AM COLLECTION SYSTEMS TECHNICIAN Gender Identity Not on file Sexual Orientation Not on file Obstetrics History Last Filed Vital Signs Vital Sign Reading Time Taken Comments Blood Pressure 116/84 05/29/2024 2:38 PM CDT Pulse 78 05/29/2024 2:38 PM CDT Temperature 37.1 C (98.8 F) 06/23/2021 8:08 AM COLLECTION SYSTEMS TECHNICIAN Respiratory Rate 16 06/23/2021 8:08 AM COLLECTION SYSTEMS TECHNICIAN Oxygen Saturation 99% 06/23/2021 8:08 AM COLLECTION SYSTEMS TECHNICIAN Inhaled Oxygen Concentration - - Weight 72.5 [...] patient's age to complete this topic Insurance [facility] CHOICE PLUS [address] [place] [address] [facility] CHOICE PLUS Care Teams Ordnance Artificer Helper Relationship Specialty Start Date End Date Isabelle Rojas MD PCP - General Internal Medicine 04/03/21
--- OUTSIDE RECORDS SUMMARY | 2025-02-22 09:21 | XMS_ITS | Referral Summary ---
Author Organization [facility] Physician Office Building [address] [place] [id number] Care Team Providers Care Side Panel Padder Name Role Phone Isabelle Rojas MD Primary Care Provider [phone] Allergies Active Allergy Reactions Criticality Noted Date Comments Latex Unknown 05/29/2024 Ffiimtha-Faewvasbgm-Rgxprybpq Rash,Unknown Medium 08/2018 Wasp Venom Swelling Medium [...] on file Legal Sex Female 2:25 AM OPERATIONS DISPATCHER Gender Identity Not on file Sexual Orientation Not on file Last Filed Vital Signs Vital Sign Reading Time Taken Comments Blood Pressure 116/84 05/29/2024 2:38 PM CDT Pulse 78 05/29/2024 2:38 PM CDT Temperature 37.1 C (98.8 F) 06/23/2021 8:08 AM OPERATIONS DISPATCHER Respiratory Rate 16 06/23/2021 8:08 AM OPERATIONS DISPATCHER Oxygen Saturation 99% 06/23/2021 8:08 AM OPERATIONS DISPATCHER Inhaled Oxygen Concentration - - Weight 72.5 kg (159 lb 14.4 oz) 05/29/2024 2:38 PM CDT Height 167 cm (5' 5.75) 05/29/2024 2:38 PM CDT Body Mass Index 26.01 05/29/2024 2:38 PM CDT Plan of Treatment Not on file Insurance [facility] CHOICE [facility]US [facility] HMO/PPO Address: [address] [address] [place] [address] [facility] [id number] [facility] CHOICE [facility]US [facility] HMO/PPO Address: [facility] [address] [place] [address] [facility] [id number] Care Teams Side Panel Padder Relationship Specialty Start Date End Date Isabelle Rojas MD PCP - General Internal Medicine 04/03/21
--- OUTSIDE RECORDS SUMMARY | 2025-02-22 09:21 | XMS_ITS | Encounter Summary ---
Author Organization [facility] Address [address] [facility] [place] [address] Care Team Providers Care Pump Assembler Name Role Phone Servando Lozano MD Primary Care Provider [phone] Encounter Details Date Type Department Care Team (Late st Contact Info) Description 11/22/2020 Lab Requisition [facility] DermPath Lab [address] [place] [id number] Deshawn Gil MD [address] [place] [address] Social History Tobacco Use Types Packs/Day Years Used Date Smoking Tobacco: Never Assessed Comments Unknown Sex and Gender Information Value Date Recorded Sex Assigned at Not on file Legal Sex Female 6:28 PM SLIP MAKER Gender Identity Not on file Sexual Orientation Not on file documented as of this encounter Plan of Treatment Not on file documented as of this encounter Procedures Procedure Name Priority Date/Time Associated Diagnosis Comments DERMATOPATHOLOGY Routine 11/20/2020 3:33 AM CDT documented in this encounter Results * DERMATOPATHOLOGY (11/20/2020 3:33 AM CDT) Case Report Dermatopathology Report Case: [id number] Authorizing Provider: Deshawn Gil MD Collected: 11/20/2020 03:33 AM Ordering Location: [facility] Received: 11/22/2020 02:19 PM Pathologist: [...] an excision submitted in 4 pieces measuring 5m9m3sq, bisected, 2t3d2yp, 7y2h4vy, & 1m5o0mg. Jar 0. 12:10 PM CDT DERMATOPATHOLOGY LABORATORY [...] characteristic determined by the Dermatopathology Laboratory at [facility], directed by Dr. Austin Dhillon. These tests need not be, and therefore are not, approved by the [place] Food and Drug Administration. The tests are used for clinical purposes. Billing Codes Specimen Charges Stain Charges 52463 1 12:10 PM CDT DERMATOPATHOLOGY LABORATORY Embedded Images 12:10 PM CDT DERMATOPATHOLOGY LABORATORY Pathology/Cytolo gy TISSUE SPECIMEN FROM SKIN / Unknown 11/20/2020 3:33 AM CDT 11/22/2020 2:19 PM CDT us Deshawn Gil MD LAB - PATHOLOGY/CYTOLOGY ORD ERABLES Final Result DERMATOPATHOLOGY LABORATORY [facility] - Department of Dermatology [address], [address] [phone] documented in this encounter Visit Diagnoses Not on filedocumented in this encounter Care Teams Pump Assembler Relationship Specialty Start Date End Date Servando Lozano MD [address] [place] [address] PCP - General 08/16/12 documented as of this encounter
--- OUTSIDE RECORDS SUMMARY | 2025-02-22 09:21 | XMS_ITS | Clinical Summary ---
Author Organization [facility] Address [address], [address] [address] Phone Care Team Providers Care Ciaio Counter Molder Name Role Phone Melchor Manzanares DO Unavailable [phone] Barbi Gutierrez MD Primary Care Provi shree Allergies Active Allergy Reactions Criticality Noted Date Comments Wvglglbjkh-Czbdllrh-Yutfqqliw Rash 2018 Medications levothyroxine (SYNTHROID) 75 MCG [...] by mouth daily. Active Probiotic Product (ALOE 34240 & PROBIOTICS) Capsule Take by mouth. 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
[2025-02-22 09:29] LABS: Alanine Aminotransferase 24 U/L (6-35); Albumin Level 4.3 g/dL (3.5-5.1); Alkaline Phosphatase 81 U/L (38-126); Anion Gap 8 mmol/L (4-12); Aspartate Amino Transferase 37 U/L (14-36); Bilirubin,Total 0.6 mg/dL (0.2-1.3); Blood Urea Nitrogen 15 mg/dL (7-17); Calcium 9.1 mg/dL (8.4-10.2); Carbon Dioxide 25 mmol/L (22-30); Chloride 100 mmol/L (98-107); Estimated CRCL calculation 53 ml/min; Estimated Glomerular Filt Rate 60; Glucose 127 mg/dL (65-110); Lipase 31 U/L (23-300); Potassium 3.2 mmol/L (3.4-5.0); Sodium 133 mmol/L (137-145); Total Protein 7.6 g/dL (6.3-8.2)
[2025-02-22 09:33] LABS: Add Urine Microscopic? YES; Appearance Urine Clear (Clear); Budding Yeast Urine Present /hpf; Glucose Urine UA Negative (Negative); Leukocyte Esterase Ur Negative LEU/UL (Negative); Need Manual Microscopic Reviewed; Nitrate Urine Negative (Negative); Non Pathogenic Casts 0-2; Specific Grav Ur 1.031 (1.001-1.035)
[2025-02-22 09:34] VITALS: BP 120/80; PULSE 69; RESP 15; O2SAT 98
--- NOTE | 2025-02-22 09:47 | ED.ABDPAIN ---
HPI - Abdominal Pain General Chief Complaint: Abdominal Pain Stated Complaint: sharp left sided abdominal pain Time Seen by Provider: 02/22/25 09:09 Source: patient Mode of arrival: ambulatory Limitations: no limitations History of Present Illness HPI narrative: This is a 59 year old female that presents to the ER for left flank pain ongoing since last night. Reports associated urinary frequency. Reports history of kidney stones. Reports nausea and vomiting. Denies fever, hematuria. Related Data Home Medications ?Medication ?Instructions ?Recorded ?Confirmed ?Last Taken ?Type cholecalciferol (vitamin D3) 125 5,000 unit PO .3XWK 10/03/20 01/17/24 Unknown History mcg (5,000 unit) tablet lactobacillus combination no.8 3 3,000 mmu cells PO DAILY 10/03/20 01/17/24 Unknown History billion cell capsule (Adult Probiotic) Allergies Allergy/AdvReac Type Severity Reaction Status Date / Time neomycin Allergy Intermediate REDNESS,BLI Verified 02/22/25 08:51 STERS adhesive Allergy Mild Rash Verified 02/22/25 08:51 bacitracin Allergy Unknown Unknown Verified 02/22/25 08:51 polymyxin B Allergy Unknown Unknown Verified 02/22/25 08:51 Review of Systems Review of Systems: All systems reviewed & are unremarkable except as noted in HPI and below PMFSH Past Medical History Medical History Elevated liver function tests Family history of colon cancer in father History of nephrolithotomy with removal of calculi Hypertension Hypothyroidism Menopausal syndrome Normal colonoscopy Prediabetes Surgical History Surgical History H/O LEEP History of appendectomy History of hysterectomy [place] teeth removed Family History Family History Mother Diabetes mellitus Hypertension Patient's mother is , Onset Age: 64 Father Patient's father is , Onset Age: 68 Carcinoma of colon Family history of primary malignant neoplasm of liver Sibling Family history of malignant neoplasm of thyroid Social History Social History Smoking status: Never smoker Second hand tobacco smoke exposure: No Alcohol intake: never Substance use: never Substance use type: does not use Lack of Transportation: No Lack of Food: Never True Current Housing: I Have Housing Concerned About Future Housing: No Difficulty Paying Gas/Electric Bills: No Difficulty Paying for Meds: No Currently Unemployed: No Education: Master's Degree or Higher Living arrangements: with family Occupation/Education: occupation Gender identity (if verbalized by the patient): Female Sexual Orientation (if Verbalized by the Patient): Straight or Heterosexual Spiritual care concerns: No Exam Narrative: GENERAL: Well-appearing, well-nourished, and in no acute distress. HEAD: Normocephalic, atraumatic. EYES: EOMI. CHEST: Clear to auscultation. No respiratory distress. No wheezes rales or rhonchi HEART: Regular rate and rhythm. No murmur heard. Normal peripheral pulses. ABDOMEN: Soft, nontender, nondistended, normal active bowel sounds. EXTREMITIES: Normal range of motion. No edema. SKIN: Warm, dry, no rash. NEURO: No focal deficits. Alert and oriented x3. PSYCH: Normal mood and affect Course Course Emergency Course: Patient updated on her workup and agrees with plan of care Vital Signs Vital signs: Vital Signs Temperature 97.7 F 02/22/25 08:32 Pulse Rate 70 02/22/25 08:32 Respiratory Rate 20 02/22/25 08:32 Blood Pressure 97/76 L 02/22/25 08:32 Pulse Oximetry 99 02/22/25 08:32 Oxygen Delivery Room Air 02/22/25 08:32 Temperature 97.5 F L 02/22/25 08:52 Pulse Rate 65 02/22/25 10:09 Respiratory Rate 14 02/22/25 10:09 Blood Pressure 110/77 02/22/25 10:09 Pulse Oximetry 97 02/22/25 10:09 Oxygen Delivery Room Air 02/22/25 08:52 MDM - Abdominal Pain MDM Narrative Medical decision making narrative: Patient presents emergency department for left flank pain. She is afebrile and nontoxic appearing. Vitals are stable. CBC with mild leukocytosis to 13. Metabolic panel with mild hypokalemia, this was replaced. Magnesium is normal. Urine without evidence of infection, does show red blood cells. CT abdomen pelvis shows a 4 mm left UVJ stone. Patient updated on her workup and agrees with plan of care. Pain is under control currently. Will be started on Flomax, given pain medication as needed. She is to follow up with her urologist. She was given warnings to return to the ER Differential Diagnosis Differential diagnosis: Likely calculus of kidney and diverticulitis Lab Data Attestation: I reviewed the patient's lab results. 02/22/25 09:00 02/22/25 09:00 Labs: Lab Results 02/22/25 02/22/25 Range/Units 09:00 09:03 WBC 13.0 H (4.5-10.0) K/mm3 RBC 4.77 (4.2-5.4) M/mm3 Hgb 14.0 (12.0-15.0) g/dL Hct 40.7 (37.0-47.0) % MCV 85.3 (80-100) fl MCH 29.4 (26-34) pg MCHC 34.4 (32-36) g/dl RDW 12.0 (11.5-14.5) % Plt Count 350 (150-375) k/mm3 MPV 9.2 (7.4-10.4) fl Immature Gran % (Auto) 0.2 (0-0.5) % Neut % (Auto) 88.7 H (45.5-73.1) % Lymph % (Auto) 8.3 L (18.3-44.2) % [place] % (Auto) 2.4 L (2.6-8.5) % Eos % (Auto) 0.0 (0-4.4) % Baso % (Auto) 0.4 (0.2-1.2) % Lymph # (Auto) 1.08 (0.9-3.2) K/mm3 [place] # (Auto) 0.3 (0.1-0.6) K/mm3 Eos # (Auto) 0.0 (0-0.3) K/mm3 Baso # (Auto) 0.1 (0.0-0.1) K/mm3 Abs Immat Gran (auto) 0.03 (0.00-0.031) K/mm3 Absolute Neuts (auto) 11.5 H (1.3-6.7) K/mm3 Absolute Nucleated RBC 0.000 (0.0-0.012) K/mm3 Nucleated RBC % 0.0 (0.0-0.2) % Sodium 133 L (137-145) mmol/L Potassium 3.2 L (3.4-5.0) mmol/L Chloride 100 (98-107) mmol/L Carbon Dioxide 25 (22-30) mmol/L Anion Gap 8 (4-12) mmol/L BUN 15 (7-17) mg/dL Creatinine 0.96 (0.7-1.0) mg/dL Estim Creat Clear Calc 53 ml/min Estimated GFR 60 (59 - ) Glucose 127 H (65-110) mg/dL Calcium 9.1 (8.4-10.2) mg/dL Magnesium 1.9 (1.6-2.3) mg/dL Total Bilirubin 0.6 (0.2-1.3) mg/dL AST 37 H (14-36) U/L ALT 24 (6-35) U/L Alkaline Phosphatase 81 (38-126) U/L Total Protein 7.6 (6.3-8.2) g/dL Albumin 4.3 (3.5-5.1) g/dL Lipase 31 (23-300) U/L Urine Color Yellow (Yellow) Urine Appearance Clear (Clear) Urine pH 5.5 (5.0-9.0) Ur Specific [place] 1.031 (1.001-1.035) Urine Protein Trace (Negative) mg/dL Urine Glucose (UA) Negative (Negative) mg/dL Urine Ketones 3+ H (Negative) mg/dL Ur Blood (Man) Negative (Negative) Urine Nitrate Negative (Negative) Urine Bilirubin Negative (Negative) Urine Urobilinogen 1.0 (<2.0) mg/dL Add Ur Microanalysis Reviewed Leukocyte Esterase Rfl Negative (Negative) KEESHA/UL Urine RBC 6-10 H (0-2) /hpf Urine WBC 0-5 (0-3) /hpf Ur Squamous Epith Cells Moderate (Few) /hpf Urine Bacteria Rare /hpf Urine Casts 0-2 Urine Mucus Present /lpf Urine Yeast (Budding) Present H (None) /hpf Imaging Data Radiologist's impression: ITS Impressions Abdomen/Pelvis CT 02/22/25 09:59 IMPRESSION: 1. Left UVJ stone measuring 4 mm with mild-moderate hydronephrosis. 2: Nonobstructing bilateral nephrolithiasis. Critical Care Time Critical Care Time Critical Care Time: No Discharge Plan Discharge Clinical Impression: Ureterolithiasis, Hypokalemia Patient Disposition: Home Condition: Stable Instructions: Kidney Stones (ED), Hypokalemia (ED), How to Strain Your Urine (ED) Additional Instructions: Return to the ER if you experience fever, abdominal pain with nausea and vomiting, you are unable to keep down liquids or solids, or any other symptoms that are concerning to you Remain well hydrated. Take tamsulosin daily. Pain medication as needed. Strain your urine Follow up with your urologist Patient Language: Uzbek Prescriptions: New hydrocodone-acetaminophen 5-325 mg tablet 1 tablet PO Q6H PRN (Reason: pain) Qty: 20 0RF tamsulosin 0.4 mg capsule 0.4 mg PO DAILY 7 Days Qty: 7 0RF No Action cholecalciferol (vitamin D3) 125 mcg (5,000 unit) tablet 5,000 unit PO .3XWK Rx Instructions: WEDNESDAY, WEDNESDAY, WEDNESDAY. (1 TAB). Adult Probiotic 3 billion cell capsule 3,000 mmu cells PO DAILY Rx Instructions: administer with a meal amlodipine 10 mg tablet 10 mg PO DAILY Qty: 90 0RF levothyroxine [Synthroid] 75 mcg tablet 75 mcg PO DAILY Qty: 90 0RF hydrochlorothiazide 25 mg tablet 25 mg PO DAILY Qty: 90 0RF estradiol 2 mg tablet 2 mg PO DAILY Qty: 90 0RF Follow-up/Referrals: Juanita Renner PA-C [Primary Care Provider] - Mukund Petit MD [Physician] -
[2025-02-22] MEDS: SODIUM CHLORIDE 0.9% IV 1,000 ML 999 ML IV CONT (10:06)
[2025-02-22] MEDS: ONDANSETRON INJ 4 MG/2 ML VIAL IV PUSH (10:08)
[2025-02-22 10:09] VITALS: BP 110/77; PULSE 65; RESP 14; O2SAT 97
[2025-02-22] MEDS: MORPHINE SULFATE (*CRX) 4 MG/ML INJ IV PUSH (10:09)
[2025-02-22 10:49] LABS: Magnesium 1.9 mg/dL (1.6-2.3)
[2025-02-22] MEDS: KETOROLAC 15 MG/ML VIAL (*BKC) IV PUSH (11:11)
[2025-02-22] MEDS: POTASSIUM CHLORIDE 20 MEQ ER TABLET 40 MEQ PO (11:11)
[2025-02-22 11:12] VITALS: BP 116/76; PULSE 69; RESP 16; O2SAT 99
== END 2025-02-22 11:28 | disposition home or self-care (01) ==
PROVIDERS: Emergency Medicine; Emergency Provider Physician Assistant; PCP Student in an Organized Health Care Education/Training Program
DX: N20.1 Calculus of ureter (principal); E87.6 Hypokalemia; I10 Essential (primary) hypertension; E03.9 Hypothyroidism, unspecified
CPT/HCPCS: 36415; 74176; 80053; 81001; 83690; 83735; 85025; 96361; 96374; 96375; 99284; A9270; J1885; J2270; J2405; J7030

== ENCOUNTER 2025-04-30 15:10 | Outpatient (CLI) | payer OTHER, SELFPAY ==
--- NOTE | ~2025-04-30 | MM_ITS ---
EXAMINATION: MM screening french BI w kamla HISTORY: Screening TECHNIQUE: Craniocaudal and mediolateral oblique 3-D tomosynthesis images were obtained and synthetic 2-D images were generated. CAD analysis was submitted and interpreted. COMPARISON: Comparison to multiple prior studies sequentially, with oldest reviewed study dated 01/23/2020. BREAST PARENCHYMAL COMPOSITION: Not dense: There are scattered areas of fibroglandular density. FINDINGS: New small mass lower outer quadrant of the right breast, anterior- middle depth. The left breast is stable without evidence for malignancy. IMPRESSION: 1. New small right breast mass, lower outer quadrant.. 2. Additional mammographic views and possible breast ultrasound are recommended. BI-RADS Category 0: Incomplete: Needs additional imaging evaluation. Reviewed, dictated and finalized at location B. IMPRESSION: 1. New small right breast mass, lower outer quadrant.. 2. Additional mammographic views and possible breast ultrasound are recommended . BI-RADS Category 0: Incomplete: Needs additional imaging evaluation.
--- OUTSIDE RECORDS SUMMARY | 2025-04-30 16:01 | XMS_ITS | Encounter Summary ---
Author Organization [facility] Address [address] [place] [address] Care Team Providers Care Strategy Specialist Name Role Phone Servando Lozano MD Primary Care Provider [phone] Encounter Details Date Type Department Care Team (Late st Contact Info) Description 11/22/2020 Lab Requisition [facility] DermPath Lab [address] [place] [phone] Deshawn Gil MD [address] [place] [address] Social History Tobacco Use Types Packs/Day Years Used Date Smoking Tobacco: Never Assessed Comments Unknown Sex and Gender Information Value Date Recorded Sex Assigned at Not on file Legal Sex Female 6:28 PM LOG SNAKER Gender Identity Not on file Sexual Orientation Not on file documented as of this encounter Plan of Treatment Not on file documented as of this encounter Procedures Procedure Name Priority Date/Time Associated Diagnosis Comments DERMATOPATHOLOGY Routine 11/20/2020 3:33 AM CDT documented in this encounter Results * DERMATOPATHOLOGY (11/20/2020 3:33 AM CDT) Case Report Dermatopathology Report Case: [id number] Authorizing Provider: Deshawn Gil MD Collected: 11/20/2020 03:33 AM Ordering Location: [facility] Derm[facility] Lab Received: 11/22/2020 02:19 [...] an excision submitted in 4 pieces measuring 4m5d3pf, bisected, 5l0l5in, 3o5f4np, & 2k8p7hj. Jar 0. 12:10 PM CDT DERMATOPATHOLOGY LABORATORY [...] characteristic determined by the Dermatopathology Laboratory at [facility], directed by Dr. Austin Dhillon. These tests need not be, and therefore are not, approved by the [place] Food and Drug Administration. The tests are used for clinical purposes. Billing Codes Specimen Charges Stain Charges 23108 1 12:10 PM CDT DERMATOPATHOLOGY LABORATORY Embedded Images 12:10 PM CDT DERMATOPATHOLOGY LABORATORY Pathology/Cytolo gy TISSUE SPECIMEN FROM SKIN / Unknown 11/20/2020 3:33 AM CDT 11/22/2020 2:19 PM CDT us Deshawn Gil MD LAB - PATHOLOGY/CYTOLOGY ORD ERABLES Final Result DERMATOPATHOLOGY LABORATORY [facility] - Department of Dermatology [address] [phone] documented in this encounter Visit Diagnoses Not on filedocumented in this encounter Care Teams Strategy Specialist Relationship Specialty Start Date End Date Servando Lozano MD [address] [place] [address] PCP - General 08/16/12 documented as of this encounter
--- OUTSIDE RECORDS SUMMARY | 2025-04-30 16:01 | XMS_ITS | Clinical Summary ---
Author Organization [facility] Address [address] [place] [address] Care Team Providers Care Sister Superior Name Role Phone Servando Lozano MD Primary Care Provider [phone] Source Comments [facility],non-owned Affiliates and Associated Physician Practices is amultiple site organization consisting of ambulatory clinics and hospital sitesin [place], [place], [place] and [place]. This disclosure is being madepursuant to the Care Everywhere program and may not contain all information available regarding this patient. Last updated 18.[facility] Allergies No known active allergies Immunizations Immunization Administration Dates Next Due INFLUENZA VACCINE, QUADR. (F LUZONE; FLULAVAL; FLUARIX; AFLURIA QUADRIVALENT; 6MO+), 0.5 ML (IIV4) 04/11/2019 Social History Tobacco Use Types Packs/Day Years Used Date Smoking Tobacco: Never Assessed Comments Unknown Sex and Gender Information Value Date Recorded Sex Assigned at Not on file Legal Sex Female 6:28 PM ENROLLMENT COUNSELOR Gender Identity Not on file Sexual Orientation [...] 09/30/2017 ZOSTER VACCINE (1 of 2) 09/30/2017 DEPRESSION SCREENING 08/02/2024 COVID-19 VACCINE (1 - 2023-2 5 season) 2025 INFLUENZA VACCINE (#1) 2025 04/11/2019 HIB VACCINE [...] patient's age to complete this topic Insurance [facility] [employer] Care Teams Sister Superior Relationship Specialty Start Date End Date Servando Lozano MD [address] [place] [address] PCP - General 08/16/12
--- OUTSIDE RECORDS SUMMARY | 2025-04-30 16:01 | XMS_ITS | Clinical Summary ---
Author Organization [facility] Physician Office Building [address] [place] [address] Care Team Providers Care Medical Csr Name Role Phone Isabelle Rojas MD Primary Care Provider [phone] Allergies Active Allergy Reactions Criticality Noted Date Comments Latex Unknown 05/29/2024 Hiazwqyx-Hoqiutogag-Jtikugbyb Rash,Unknown Medium 08/2018 Wasp Venom Swelling Medium [...] on file Legal Sex Female 2:25 AM SENIOR CONSTRUCTION PROJECT MANAGER Gender Identity Not on file Sexual Orientation Not on file Obstetrics History Last Filed Vital Signs Vital Sign Reading Time Taken Comments Blood Pressure 116/84 05/29/2024 2:38 PM CDT Pulse 78 05/29/2024 2:38 PM CDT Temperature 37.1 C (98.8 F) 06/23/2021 8:08 AM SENIOR CONSTRUCTION PROJECT MANAGER Respiratory Rate 16 06/23/2021 8:08 AM SENIOR CONSTRUCTION PROJECT MANAGER Oxygen Saturation 99% 06/23/2021 8:08 AM SENIOR CONSTRUCTION PROJECT MANAGER Inhaled Oxygen Concentration - - Weight [...] 01/04/2022 01/05/2012, 11/30/2002 Covid-19 Vaccine ( season) 2025 10/04/2020, 09/06/2020 Influenza Vaccine (#1) 2025 , 05/03/2020, 05/02/2020, Additional history exists Zoster Vaccine Completed 06/07/2020, 04/05/2020 Pneumococcal vaccine <65 Aged Out No longer eligible based on patient's age to complete this topic Insurance [facility] CHOICE PLUS [facility] HMO/PPO Address: [address] [address] [place], [place] [address] [place] [address] [place] [address] [facility] CHOICE PLUS [facility] HMO/PPO Address: [address] [place] [address] Care Teams Medical Csr Relationship Specialty Start Date End Date Isabelle Rojas MD PCP - General Internal Medicine 04/03/21
--- OUTSIDE RECORDS SUMMARY | 2025-04-30 16:02 | XMS_ITS | Clinical Summary ---
Author Organization [facility] Address [address], [address] [address] Phone Care Team Providers Care Fish Farmer Name Role Phone Melchor Manzanares DO Unavailable [phone] Barbi Gutierrez MD Primary Care Provi shree Allergies Active Allergy Reactions Criticality Noted Date Comments Lwmkbmlrdf-Bomghntz-Aggevsvvf Rash 2018 Medications levothyroxine (SYNTHROID) 75 MCG [...] by mouth daily. Active Probiotic Product (ALOE 39352 & PROBIOTICS) Capsule Take by mouth. 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 [...] Colonoscopy 05/05/2023 05/05/2018 Colorectal Cancer Screening 05/05/2023 Influenza Immunization (#1) 2025 09/0 12/2016, 05/04/2016, 05/22/2015, Additional history exists SARS-COV-2 Immunization ( season) 2025 07/09/2021, 10/04/2020, 09/06/2020 Respiratory Syncytial Virus (RSV) Immunization (Adult) (1 [...] (09/11/2016) Blood specimen (specimen) us Venus Willis CURER FOAM RUBBER, FINANCIAL OFFICER IMMUNOLOGY ORDERABLES Fi nal Result from Last 3 Months or Most Recently Relevant to Health Maintenance Insurance [facility] Care Teams Fish Farmer Relationship Specialty Start Date End Date aBrbi Gutierrez MD [address] [place] [address] PCP - General Family Medicine 05/09/18 Melchor Manzanares DO Gastroenterology 04/09/16
== END 2025-04-30 15:11 | disposition home or self-care (01) ==
PROVIDERS: PCP Student in an Organized Health Care Education/Training Program; Visit Provider Student in an Organized Health Care Education/Training Program
DX: Z12.31 Encounter for screening mammogram for malignant neoplasm of breast (principal); R92.8 Other abnormal and inconclusive findings on diagnostic imaging of breast
CPT/HCPCS: 77063; 77067

== ENCOUNTER 2025-05-15 08:19 | Outpatient (CLI) | payer OTHER, SELFPAY ==
--- NOTE | ~2025-05-15 | US_ITS ---
US right upper quadrant Indication: R74.8 - Abnormal levels of other serum enzymes Comparison: None Technique: Mayo-scale and color Doppler images were obtained. Findings: LIVER: Mild increased echogenicity of the liver. . GALLBLADDER/BILIARY: Unremarkable.No cholelithiais, wall thickening or pericholecystic fluid. No biliary dilatation. CBD measures 3 mm. Boyds sign negative. PANCREAS: Unremarkable. Right Kidney: Right kidney 11.2 cm, normal. Impression: No acute abnormality. Reviewed, dictated and finalized at location P. Impression: No acute abnormality.
== END 2025-05-15 08:20 | disposition home or self-care (01) ==
LOC: MICIMG 08:19
PROVIDERS: PCP Student in an Organized Health Care Education/Training Program; Visit Provider Student in an Organized Health Care Education/Training Program
DX: R74.8 Abnormal levels of other serum enzymes (principal)
CPT/HCPCS: 76705

== ENCOUNTER 2025-06-05 11:23 | Outpatient (CLI) | payer OTHER, SELFPAY ==
--- NOTE | ~2025-06-05 | MMUS_ITS ---
EXAMINATION: MM diagnostic french RT w kamla, US breast RT limited INDICATION: 59-year old female; BI-RADS 0, callback to evaluate Right breast mass. COMPARISON: 04/30/2025 TECHNIQUE: Digital breast tomosynthesis ML and spot compression CC and MLO views of right breast were obtained with computer-aided detection to assist in interpretation of the study. FINDINGS: There are scattered areas of fibroglandular density. A circumscribed small mass persists on spot compression views in the lateral and most likely inferior at anterior depth. Ultrasound was performed for further evaluation. RIGHT BREAST ULTRASOUND FINDINGS: Targeted evaluation of the area of concern was completed. At 8:00, 6 cm FN location, there is a 0.3 x 0.2 x 0.3 cm circumscribed anechoic mass which most likely represent a cyst. The lesion correlates to the area of mammographic finding. At 9:00, 4 cm from the nipple there is an hypoechoic mass which is taller than wide measuring 0.5 x 0.3 x 0.5 cm. No definite mammographic correlate is seen to the suspicious sonographic finding. At 8:00, 2 cm from the nipple there is a 0.3 x 0.3 x 0.4 cm circumscribed hypoechoic mass. This finding may represent a complicated cyst. IMPRESSION: 1. Suspicious right breast mass at 9:00 location. Biopsy is recommended. 2. Right breast circumscribed mass most likely a cyst at 8:00, 6 cm from the nipple location correlates to the mammographic finding. 3. Probably benign right breast 0.4 cm mass at 8:00, 2 cm from the nipple. RECOMMENDATION: Ultrasound-guided core needle biopsy right breast mass at 9:00 location. Short-term follow-up right breast ultrasound in 6 months to assess viability of probably benign mass at 8:00, 2 cm from the nipple. BI-RADS 4, SUSPICIOUS Reviewed, dictated and finalized at location B. ASOUND APPLICATIONS SPECIALIST IMPRESSION: 1. Suspicious right breast mass at 9:00 location. Biopsy is recommended. 2. Right breast circumscribed mass most likely a cyst at 8:00, 6 cm from the n ipple location correlates to the mammographic finding. 3. Probably benign right breast 0.4 cm mass at 8:00, 2 cm from the nipple. RECOMMENDATION: Ultrasound-guided core needle biopsy right breast mass at 9:00 location. Short-term follow-up right breast ultrasound in 6 months to assess viability of probably benign mass at 8:00, 2 cm from the nipple. BI-RADS 4, SUSPICIOUS
--- OUTSIDE RECORDS SUMMARY | 2025-06-05 13:41 | XMS_ITS | Clinical Summary ---
Author Organization [facility] Address [address], [address] [address] Phone Care Team Providers Care Racing Board Marker Name Role Phone Melchor Manzanares DO Unavailable [phone] Barbi Gutierrez MD Primary Care Provi shree Allergies Active Allergy Reactions Criticality Noted Date Comments Mimtleifyb-Htjrqbzr-Jxanjhzdg Rash 2018 Medications levothyroxine (SYNTHROID) 75 MCG [...] by mouth daily. Active Probiotic Product (ALOE 95784 & PROBIOTICS) Capsule Take by mouth. 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
--- OUTSIDE RECORDS SUMMARY | 2025-06-05 13:41 | XMS_ITS | Clinical Summary ---
Author Organization [facility] Address [address] [place] [address] Care Team Providers Care Volunteer Services Manager Name Role Phone Servando Lozano MD Primary Care Provider [phone] Source Comments [facility],non-owned Affiliates and Associated Physician Practices is amultiple site organization consisting of ambulatory clinics and hospital sitesin [place], [place], [place] and [place]. This disclosure is being madepursuant to the Care Everywhere program and may not contain all information available regarding this patient. Last updated 18.[facility] Allergies No known active allergies Immunizations Immunization Administration Dates Next Due INFLUENZA VACCINE, QUADR. 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
--- OUTSIDE RECORDS SUMMARY | 2025-06-05 13:41 | XMS_ITS | Clinical Summary ---
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 Gender Identity Not on file Sexual Orientation Not on file Last Filed Vital Signs Vital Sign Reading Time Taken Comments Blood Pressure 116/84 05/29/2024 2:38 PM CDT Pulse 78 05/29/2024 2:38 PM CDT Temperature 37.1 C (98.8 F) 06/23/2021 8:08 AM COUNTY HOME DEMONSTRATION AGENT Respiratory Rate 16 06/23/2021 8:08 AM COUNTY HOME DEMONSTRATION AGENT Oxygen Saturation 99% 06/23/2021 8:08 AM COUNTY HOME DEMONSTRATION AGENT Inhaled Oxygen Concentration - - Weight 72.5 [...] patient's age to complete this topic Insurance [facility] [place] [address] [place] [id number] [address] [facility] PL[facility] Care Teams Coremaker Bench Relationship Specialty Start Date End Date Isabelle oRjas MD PCP - General Internal Medicine 04/03/21
--- OUTSIDE RECORDS SUMMARY | 2025-06-05 13:41 | XMS_ITS | Encounter Summary ---
Author Organization [facility] Address [address] [place] [address] Care Team Providers Care Ophthalmic Surgeon Name Role Phone Servando Lozano MD Primary Care Provider [phone] Encounter Details Date Type Department Care Team (Late st Contact Info) Description 11/22/2020 Lab Requisition [facility] D[facility] Lab [address] [place] [id number] Deshawn Gil MD [address] [place] [address] Social History Tobacco Use Types Packs/Day Years Used Date Smoking Tobacco: Never Assessed Comments Unknown Sex and Gender Information Value Date Recorded Sex Assigned at Not on file 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 Gender Identity Not on file Sexual Orientation Not on file documented as of this encounter Plan of Treatment Not on file documented as of this encounter Procedures Procedure Name Priority Date/Time Associated Diagnosis Comments DERMATOPATHOLOGY Routine 11/20/2020 3:33 AM CDT documented in this encounter Results * DERMATOPATHOLOGY (11/20/2020 3:33 AM CDT) Case Report Dermatopathology Report Case: [id number] Authorizing Provider: Deshawn Gil MD Collected: 11/20/2020 03:33 AM Ordering Location: [facility] Received: 11/22/2020 02:19 PM Pathologist: [...] an excision submitted in 4 pieces measuring 6l3h9uy, bisected, 9u3u4ad, 3b2s3zy, & 3d0f5el. Jar 0. 12:10 PM CDT DERMATOPATHOLOGY LABORATORY [...] characteristic determined by the Dermatopathology Laboratory at [facility], directed by Dr. Austin Dhillon. These tests need not be, and therefore are not, approved by the [place] Food and Drug Administration. The tests are used for clinical purposes. Billing Codes Specimen Charges Stain Charges 76966 1 12:10 PM CDT DERMATOPATHOLOGY LABORATORY Embedded Images 12:10 PM CDT DERMATOPATHOLOGY LABORATORY Pathology/Cytolo gy TISSUE SPECIMEN FROM SKIN / Unknown 11/20/2020 3:33 AM CDT 11/22/2020 2:19 PM CDT us Deshawn Gil MD LAB - PATHOLOGY/CYTOLOGY ORD ERABLES Final Result DERMATOPATHOLOGY LABORATORY [facility] - Department of Dermatology [address], [address] [phone] documented in this encounter Visit Diagnoses Not on filedocumented in this encounter Care Teams Ophthalmic Surgeon Relationship Specialty Start Date End Date Servando Lozano MD [address] [place] [address] PCP - General 08/16/12 documented as of this encounter
== END 2025-06-05 11:24 | disposition home or self-care (01) ==
LOC: ANHFOHIMG 11:24
PROVIDERS: PCP Student in an Organized Health Care Education/Training Program; Visit Provider Student in an Organized Health Care Education/Training Program
DX: N63.13 Unspecified lump in the right breast, lower outer quadrant (principal); N63.11 Unspecified lump in the right breast, upper outer quadrant; R92.8 Other abnormal and inconclusive findings on diagnostic imaging of breast
CPT/HCPCS: 76642; 77061; 77065; G0279

== ENCOUNTER 2025-07-18 07:44 | Outpatient (CLI) | payer OTHER, SELFPAY ==
--- NOTE | ~2025-07-18 | MMUS_ITS ---
PROCEDURE: US breast biopsy RT w image, MM post biopsy diagnostic RT CLINICAL HISTORY: 59-year-old female with suspicious right breast mass, presents for ultrasound-guided core needle biopsy procedure. COMPARISON: 06/05/2025 Following informed consent including risks, benefits, and possible complications, the patient was brought to the ultrasound suite. A time-out procedure was performed. A preliminary ultrasound of the right breast was performed, redemonstrating hypoechoic mass at 9:00, 4 cm FN. The patient was prepped and draped in the usual sterile fashion. 1% lidocaine was instilled into the subcutaneous tissues. 1% lidocaine without epinephrine was injected into the deep tissues just inferior to the lesion. Approximately 10cc lidocaine was administered. A small skin velvet was made. Multiple core samples were obtained with a 13-gauge vacuum assisted biopsy needle. A post biopsy metal marker was placed at the biopsy site. Postprocedural mammogram of the right breast in craniocaudal and mediolateral projections reveal the post biopsy [place] Mel[place] coil marker in good position. The patient tolerated the procedure well and was without immediate postprocedural complications. IMPRESSION: Successful ultrasound guided biopsy of right breast mass. A post biopsy metal marker was placed at the biopsy site, which is seen on postprocedural mammogram. The patient tolerated the procedure well without immediate postprocedure complications. The patient was given postprocedural instructions and sent home in stable condition. Pathology report pending. Reviewed, dictated and finalized at location A. RVISOR OF INSTRUCTION IMPRESSION: Successful ultrasound guided biopsy of right breast mass. A post bi opsy metal marker was placed at the biopsy site, which is seen on postprocedura l mammogram. The patient tolerated the procedure well without immediate postprocedure compli cations. The patient was given postprocedural instructions and sent home in sta ble condition. Pathology report pending.
--- OUTSIDE RECORDS SUMMARY | 2025-07-18 07:48 | XMS_ITS | Encounter Summary ---
Author Organization [facility] Address [address] [place] [address] Care Team Providers Care Reception Name Role Phone Servando Lozano MD Primary Care Provider [phone] Encounter Details Date Type Department Care Team (Late st Contact Info) Description 11/22/2020 Lab Requisition [facility] DermPath Lab [address] [place] [phone] Deshawn Gil MD [address] [place] [address] Social History Tobacco Use Types Packs/Day Years Used Date Smoking Tobacco: Never Assessed Comments Unknown Sex and Gender Information Value Date Recorded Sex Assigned at Not on file 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 Gender Identity Not on file Sexual Orientation Not on file documented as of this encounter Plan of Treatment Not on file documented as of this encounter Procedures Procedure Name Priority Date/Time Associated Diagnosis Comments DERMATOPATHOLOGY Routine 11/20/2020 3:33 AM CDT documented in this encounter Results * DERMATOPATHOLOGY (11/20/2020 3:33 AM CDT) Case Report Dermatopathology Report Case: [id number] Authorizing Provider: Deshawn Gil MD Collected: 11/20/2020 03:33 AM Ordering Location: [facility] Received: 11/22/2020 02:19 PM Pathologist: [...] an excision submitted in 4 pieces measuring 4u5d1ol, bisected, 9e3c9ei, 8c5i9gb, & 4y4z1zp. Jar 0. 12:10 PM CDT DERMATOPATHOLOGY LABORATORY [...] characteristic determined by the Dermatopathology Laboratory at [facility], directed by Dr. Austin Dhillon. These tests need not be, and therefore are not, approved by the [place] Food and Drug Administration. The tests are used for clinical purposes. Billing Codes Specimen Charges Stain Charges 70849 1 12:10 PM CDT DERMATOPATHOLOGY LABORATORY Embedded Images 12:10 PM CDT DERMATOPATHOLOGY LABORATORY Pathology/Cytolo gy TISSUE SPECIMEN FROM SKIN / Unknown 11/20/2020 3:33 AM CDT 11/22/2020 2:19 PM CDT us Deshawn Gil MD LAB - PATHOLOGY/CYTOLOGY ORD ERABLES Final Result DERMATOPATHOLOGY LABORATORY [facility] - Department of Dermatology [address], [address] [phone] documented in this encounter Visit Diagnoses Not on filedocumented in this encounter Care Teams Reception Relationship Specialty Start Date End Date Servando Lozano MD [address] [place] [address] PCP - General 08/16/12 documented as of this encounter
--- OUTSIDE RECORDS SUMMARY | 2025-07-18 07:48 | XMS_ITS | Clinical Summary ---
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 Gender Identity Not on file Sexual Orientation Not on file Last Filed Vital Signs Vital Sign Reading Time Taken Comments Blood Pressure 116/84 05/29/2024 2:38 PM CDT Pulse 78 05/29/2024 2:38 PM CDT Temperature 37.1 C (98.8 F) 06/23/2021 8:08 AM FORM PRESSER Respiratory Rate 16 06/23/2021 8:08 AM FORM PRESSER Oxygen Saturation 99% 06/23/2021 8:08 AM FORM PRESSER Inhaled Oxygen Concentration - - Weight 72.5 [...] patient's age to complete this topic Insurance [facility] [place] [address] [place] [id number] [place] [place] [address] [facility] PL[facility] Care Teams Etcher Electrolytic Relationship Specialty Start Date End Date Isabelle Rojas MD PCP - General Internal Medicine 04/03/21
--- OUTSIDE RECORDS SUMMARY | 2025-07-18 07:48 | XMS_ITS | Clinical Summary ---
Author Organization [facility] Address [address] [place] [address] Care Team Providers Care Qa Engineer Name Role Phone Servando Lozano MD Primary Care Provider [phone] Source Comments [facility],non-owned Affiliates and Associated Physician Practices is amultiple site organization consisting of ambulatory clinics and hospital sitesin [place], [place], [place] and [place]. This disclosure is being madepursuant to the Care Everywhere program and may not contain all information available regarding this patient. Last updated 18.[facility] Allergies No known active allergies Immunizations Immunization Administration Dates Next Due INFLUENZA VACCINE, QUADR. 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
--- OUTSIDE RECORDS SUMMARY | 2025-07-18 07:48 | XMS_ITS | Clinical Summary ---
Author Organization [facility] Address [address], [address] [address] Phone Care Team Providers Care Pelt Dropper Name Role Phone Melchor Manzanares DO Unavailable [phone] Barbi Gutierrez MD Primary Care Provi shree Allergies Active Allergy Reactions Criticality Noted Date Comments Uzgxsrumox-Hpyxdoou-Idvdfccbc Rash 2018 Medications levothyroxine (SYNTHROID) 75 MCG [...] by mouth daily. Active Probiotic Product (ALOE 59663 & PROBIOTICS) Capsule Take by mouth. 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 Not on file [...] Screening Completed 09/11/2016 Human Papillomavirus (HPV) Immunization (No Doses Required) Completed Meningococcal Immunization (ACWY) Aged Out No longer [...] (09/11/2016) Blood specimen (specimen) us Venus Willis POWDER BLENDER AND POURER, MUSIC ENGINEER IMMUNOLOGY ORDERABLES Fi nal Result from Last 3 Months or Most Recently Relevant to Health Maintenance Insurance [facility] [employer] Care Teams Pelt Dropper Relationship Specialty Start Date End Date Barbi Gutierrez MD [address] [facility] [address] PCP - General Family Medicine 05/09/18 Melchor Manzanares DO Gastroenterology 04/09/16
--- NOTE | 2025-07-18 08:56 | S_PTH ---
PATIENT: Duarte Gutierrez LOC: [facility] U#:[id number] AGE/SX: 59/F ROOM: RE07/18/[address]: Juanita Renner PA-C : 1965 BED: DIS: 07/18/2025 SPEC #: [id number] RECD: 07/18/25 11:52 STATUS: CASH LUNA #: [id number] MOLLY: 07/18/25 08:[address]: Juanita Renner DEPT: [facility] Surgical RECD BY: Beryl Ly Tissues: A - Breast Biopsy Procedures: Hematoxylin and Eosin Stain Gross and Microscopic Level 4
== END 2025-07-18 07:45 | disposition home or self-care (01) ==
PROVIDERS: PCP Student in an Organized Health Care Education/Training Program; Visit Provider Student in an Organized Health Care Education/Training Program
DX: N60.01 Solitary cyst of right breast (principal)
CPT/HCPCS: 19083; 77065; 88305; A4648